=== PATIENT | female | born 1960 | race Caucasian/White ===

== ENCOUNTER → 2019-03-05 | Outpatient (CLI) | payer OTHER ==
--- NOTE | 2019-03-05 15:00 | RAD ---
Examination: Ultrasound pelvis HISTORY: History of postmenopausal bleeding COMPARISON: None available. FINDINGS: The uterus measures 8.8 x 5.3 x 4.5 cm. Endometrium measures 1.4 cm in thickness. No increased vascular identified in the endometrium. The right and left ovaries could not be identified. IMPRESSION: 1. Thickened appearing endometrium. With a history of postmenopausal bleeding, differential includes endometrial hyperplasia or malignancy. 2. Right and left ovaries could not be identified. Electronically signed by: Willie Holt MD (03/05/2019 2:57 PM) [id number]
== END | disposition home or self-care (01) ==
LOC: US 12:57
PROVIDERS: ATTEND Nurse Practitioner Family
DX: N93.8 Other specified abnormal uterine and vaginal bleeding (principal)
CPT/HCPCS: 76830; 76856

== ENCOUNTER → 2019-03-23 | Outpatient (CLI) | payer OTHER ==
[~2019-03-23] MED LIST: IOHEXOL 300 MG/ML 75 ML VIAL. IV ONE
--- NOTE | 2019-03-23 15:02 | RAD ---
CT chest with contrast HISTORY: Shortness of breath, weight loss, tobacco use PQRS Compliance Statement: One or more of the following individualized dose reduction techniques were utilized for this examination: 1. Automated exposure control 2. Adjustment of the mA and/or kV according to patient size 3. Use of iterative reconstruction technique TECHNIQUE: Computed tomographic imaging of the chest is performed following the uneventful intravenous administration of 75 cc Omnipaque 300 nonionic contrast material. COMPARISON: None FINDINGS: Thyroid unremarkable Nonpathologic sized mediastinal lymph nodes. There is respiratory motion which degrades the study. There is centrilobular emphysema seen. Numerous 3 to 5 mm solid pulmonary nodules are seen bilaterally. There is also a prominent area of pleural thickening in the right chest wall with associated subpleural changes in the lung this measures 54 mm x 22 mm there appears to be patchy groundglass opacities greatest in the mid right lung and lower lingula. There is semisolid appearing nodules scattered bilaterally. No pleural effusions. Visualized upper abdominal organs appear unremarkable. This expansile lesion of the posterior right ninth rib and of the anterior lateral sixth right rib. IMPRESSION: Patchy bilateral groundglass opacities and semisolid nodules could reflect acute infectious process. Multiple tiny pulmonary nodules are seen bilaterally that are nonspecific. However there is a large pleural-based 50 mm chest wall mass that is suspicious for malignancy in the right chest wall adjacent to the lateral right sixth rib. Expansile right ninth and sixth rib lesions are not overtly malignant but could reflect malignancy especially in light of a chest wall mass. Electronically signed by: Wade Hope MD (03/23/2019 2:59 PM) [facility] [place]
== END | disposition home or self-care (01) ==
LOC: CT 13:55
PROVIDERS: ATTEND Family Medicine
DX: J43.2 Centrilobular emphysema (principal); R91.8 Other nonspecific abnormal finding of lung field; Z79.891 Long term (current) use of opiate analgesic; Z72.0 Tobacco use
CPT/HCPCS: 71260; Q9967

== ENCOUNTER → 2019-04-04 | Outpatient (CLI) | payer OTHER ==
--- NOTE | 2019-04-04 16:25 | RAD ---
Examination: Lower Extremity Venous Doppler Ultrasound History: Venous stasis Bilateral lower extremity edema, redness Comparison: None Procedure: Daniel scale, color flow 2D and spectal waveform analysis images are obtained with and without compression in the area of the common femoral vein, superficial femoral vein - femoral vein junction, main femoral vein (superficial femoral vein) and popliteal vein. Veins of the proximal calf are also imaged. Findings: There is normal duplex flow, color flow and compressibility of all visualized vein segments. No evidence of deep venous thrombus is present. Impression: No evidence of DVT in the bilateral lower extremity venous system. Electronically signed by: Willie Holt MD (04/04/2019 4:23 PM) [place] [id number]
== END | disposition home or self-care (01) ==
LOC: US 12:38
PROVIDERS: ATTEND Nurse Practitioner Family
DX: I87.2 Venous insufficiency (chronic) (peripheral) (principal); R60.0 Localized edema
CPT/HCPCS: 93970

== ENCOUNTER 2019-10-26 20:11 | Inpatient (IN) | payer OTHER ==
[~2019-10-26] VITALS: Ht 170.2 cm; Wt 131.0 kg
[2019-10-26 20:46] VITALS: BP 162/70
--- NOTE | 2019-10-26 21:00 | NUR ---
The patient, MATT WILKINS, 59 y/o, F admitted by ANGEL GORDON MD, to room 113, was given written information regarding hospital policies, unit procedures and contact persons. Valuables were checked and left with the patient. Physical and social needs assessed. Medications reviewed. orders reviewed and implemented. IV and fluids started. Will continue to monitor.
[2019-10-26] MEDS ORDERED: ANTI-COAG MONITOR BY PHARMACY. MC PRN (21:45)
[2019-10-26] MEDS: IV NORMAL SALINE 1,000ML 1,000 ML IV SCH (21:45)
[2019-10-26] MEDS ORDERED: VANCOMYCIN 2 GM in IV NORMAL SALINE 500ML 500 ML IV ONE (22:00)
[2019-10-26 22:23] LABS: BASO # 0.1 x10^3/uL (0.0-0.2); BASO % 1 % (0-3); EOS # 0.1 x10^3/uL (0.0-0.7); EOS % 1 % (0-3); HEMATOCRIT 39.6 % (36.0-47.0); HEMOGLOBIN 13.3 g/dL (12.0-15.5); LYMPH # 1.1 x10^3/uL (1.0-4.8); LYMPH % 11 % (24-48); MEAN CORPUSCULAR HEMOGLOBIN 32 pg (25-35); MEAN CORPUSCULAR HGB CONC 34 g/dL (31-37); MEAN CORPUSCULAR VOLUME 94 fL (79-100); MONO # 0.7 x10^3/uL (0.0-1.1); MONO % 7 % (0-9); NEUT % 81 % (31-73); PLATELET COUNT 173 x10^3/uL (140-400); RED BLOOD COUNT 4.22 x10^6/uL (3.50-5.40); RED CELL DISTRIBUTION WIDTH 14.8 % (11.5-14.5); WHITE BLOOD COUNT 9.9 x10^3/uL (4.0-11.0)
[2019-10-26 22:34] LABS: CALCIUM 8.5 mg/dL (8.5-10.1); CREATININE 0.7 mg/dL (0.6-1.0); GFR 85.6; POTASSIUM 3.7 mmol/L (3.5-5.1)
[2019-10-26 22:37] LABS: ALBUMIN 3.2 g/dL (3.4-5.0); ALBUMIN/GLOBULIN RATIO 0.7 (1.0-1.7); TOTAL BILIRUBIN 0.2 mg/dL (0.2-1.0); TOTAL PROTEIN 7.5 g/dL (6.4-8.2)
[2019-10-26] MEDS ORDERED: ALBU2.5V8 IH (23:16)
[2019-10-26] MEDS ORDERED: IPRA3AMP29 NEB (23:16)
[2019-10-26] MEDS ORDERED: CYCL-331 PO (23:16)
[2019-10-26] MEDS ORDERED: BUPR300T3 PO (23:16)
[2019-10-26] MEDS ORDERED: LEVO25TA4 PO (23:16)
[2019-10-26] MEDS ORDERED: TRAZ-120 PO (23:16)
[2019-10-26] MEDS ORDERED: BUDE10.2 IH (23:16)
[2019-10-26] MEDS ORDERED: ALBU2.5V5 NEB (23:16)
[2019-10-26] MEDS ORDERED: SERT100T PO (23:16)
[2019-10-26 23:22] VITALS: BP 156/82
[2019-10-26] MEDS: ENOXAPARIN 40 MG/0.4 ML SYRINGE. SQ SCH (23:25)
[2019-10-27 00:44] LABS: BACTERIA,URINE FEW /HPF (0-FEW); BILIRUBIN,URINE NEG (NEG); CLARITY,URINE CLEAR; COLOR,URINE STRAW; GLUCOSE,URINE NEG (NEG); NITRITE,URINE NEG (NEG); RBC,URINE OCC /HPF (0-2); SQUAMOUS EPITHELIAL CELL,UR OCC /LPF; UROBILINOGEN,URINE 0.2 mg/dL (0.2 mg/dL); WBC,URINE OCC /HPF (0-4)
[2019-10-27 05:11] VITALS: BP 132/69
--- NOTE | 2019-10-27 05:30 | EKG ---
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
[2019-10-27] MEDS: IV NORMAL SALINE 1,000ML 1,000 ML IV SCH ×3 (05:45→21:45)
[2019-10-27] MEDS ORDERED: ALBUTEROL SULFATE 2.5 MG/3 ML NEBU. IH PRN (06:30)
[2019-10-27] MEDS: VANCOMYCIN PER PHARMACY MC PRN (07:39)
[2019-10-27] MEDS: IPRATRPIUM/ALBUTEROL 0.5/2.5MG 3 ML NEBU. NEB SCH ×4 (08:00→20:00)
--- NOTE | 2019-10-27 08:16 | RAD ---
EXAM: PA and Lateral Views of the Chest DATE: 10/26/2019 9:35 PM INDICATION: COPD exacerbation COMPARISON: 03/23/2019 FINDINGS: The heart is not enlarged. Mediastinal and hilar contours are stable. Linear patchy airspace opacities in the midlungs and lung bases bilaterally. No lobar consolidation. Mild background of emphysematous change. No pleural effusion or pneumothorax. Multilevel degenerative changes of spine are seen. IMPRESSION: Linear and patchy opacities in the midlungs and lung bases bilaterally, may represent atelectasis although early/developing consolidation is not excluded, particularly in the right midlung. No definite pleural effusion or pneumothorax. No lobar consolidation. Electronically signed by: Feliz Zaman MD (10/27/2019 8:13 AM) [facility]
[2019-10-27] MEDS: buPROPion XL 300 MG TAB.ER.24H. PO SCH (08:31)
[2019-10-27] MEDS: SERTRALINE 100 MG TABLET. PO SCH ×2 (08:31→22:25)
[2019-10-27] MEDS: LACTOBACILLUS RHAMNOSUS GG 1 CAPSULE. PO SCH ×2 (08:32→22:24)
[2019-10-27] MEDS: CYCLOBENZAPRINE 10 MG TABLET. PO SCH ×2 (08:32→22:25)
[2019-10-27] MEDS ORDERED: ALBUTEROL SULFATE 2.5 MG/3 ML NEBU. NEB SCH (09:00)
--- NOTE | 2019-10-27 09:36 | RAD ---
Examination: VENOUS LOWER EXTREMITY LEFT History: Swelling and pain Comparison/Correlation: 04/04/2019 bilateral lower extremity venous duplex ultrasound exam FINDINGS: Left lower extremity duplex venous ultrasound exam was performed. Grayscale, color Doppler, and spectral Doppler imaging was performed. Compression and augmentation was performed. The left common femoral vein, superficial femoral vein, popliteal vein, and greater saphenous vein are normal with no evidence of deep venous thrombus. Normal compressibility and augmentation is evident. Left peroneal veins are unremarkable. Posterior tibial veins could not be delineated due to left lower extremity swelling and edema. IMPRESSION: Left lower extremity swelling and subcutaneous edema. No evidence of deep venous thrombus involving the left lower extremity. Electronically signed by: Brent Wyman MD (10/27/2019 9:33 AM) [id number]
[2019-10-27] MEDS: BUDESONIDE 0.5 MG/2 ML NEBU NEB SCH ×2 (10:10→20:41)
[2019-10-27] MEDS: ENOXAPARIN 40 MG/0.4 ML SYRINGE. SQ SCH ×2 (10:17→22:26)
[2019-10-27] MEDS: VANCOMYCIN 2 GM in IV NORMAL SALINE 500ML 500 ML IV SCH ×2 (10:21→22:25)
[2019-10-27 11:18] VITALS: BP 152/81
[2019-10-27 11:27] LABS: THYROID STIM HORMONE (TSH) 1.206 uIU/mL (0.358-3.740)
--- NOTE | 2019-10-27 15:00 | NUR ---
Pharmacy Vancomycin Dosing Note S:Consulted to monitor and dose vancomycin started 10/26/19. O:MATT WILKINS is a 59 year old F with Cellulitis, . Height: 5 feet, 7 inches Weight: 130.0 kg [place] Body Weight: 61.60 Adjusted Body Weight: 88.96 Dosing Weight: Actual Other Antibiotics: LABS: Last BUN: 9 Last Creatinine: 0.7 Creatinine Clearance: 121.53 Last WBC: 9.9 Vancomycin Dosing: Loading Dose: 2000 mg x1 Dosing Weight: Actual Target Trough: 10-20 A: Based on: Actual weight, renal function, and indication P: 1. Begin Vancomycin 2000 mg IV q12h 2. Follow up Trough level on 10/28/19 at 0930 3. Pharmacy will continue to monitor, follow and adjust therapy as needed. CLIFFORD BLAIR, 10/27/19 1500
[2019-10-27 16:05] VITALS: BP 131/72
[2019-10-27] MEDS: ACETAMINOPHEN 325 MG TABLET PO PRN ×2 (17:00→22:14)
[2019-10-27 19:49] VITALS: BP 179/92
[2019-10-27] MEDS ORDERED: traZODone 50 MG TABLET. PO SCH (21:00)
[2019-10-27] MEDS ORDERED: ZOLPIDEM 5 MG TABLET. PO SCH (21:00)
[2019-10-27 22:05] VITALS: BP 161/82
--- NOTE | 2019-10-27 23:33 | PN ---
DATE: SUBJECTIVE: The patient came in with left leg cellulitis. The patient is receiving IV vancomycin. She is doing somewhat better overall. Blood pressure 152/80, respiratory rate 20, pulse 90, presently afebrile. She had been running a temperature with a pulse over 100. The patient's labs look basically stable, lactic acid was baseline. Her venous Dopplers were negative. We will continue with the IV vancomycin and hopefully get that set up for outpatient. OBJECTIVE: LUNGS: Otherwise lungs are clear. CARDIOVASCULAR: Stable. EXTREMITIES: Left lower leg less swollen than previously noted. IMPRESSION: Cellulitis, left lower leg, morbid obesity. ANGEL GORDON MD DR: PRISCILLA/darrell JOB#: [id number] / [id number]
--- NOTE | 2019-10-28 02:49 | NUR ---
Pt feels like her left leg feels better. Right leg has increased in redness; pt denies pain. Pt counselled on drinking water and smoking cessation. Will continue to monitor.
[2019-10-28 05:11] VITALS: BP 143/79
[2019-10-28] MEDS: IV NORMAL SALINE 1,000ML 1,000 ML IV SCH (05:20)
[2019-10-28] MEDS: IPRATRPIUM/ALBUTEROL 0.5/2.5MG 3 ML NEBU. NEB SCH ×4 (05:28→21:06)
[2019-10-28] MEDS: LEVOTHYROXINE 25 MCG TABLET. PO SCH (06:00)
[2019-10-28] MEDS: LACTOBACILLUS RHAMNOSUS GG 1 CAPSULE. PO SCH ×2 (08:32→20:52)
[2019-10-28] MEDS: CYCLOBENZAPRINE 10 MG TABLET. PO SCH ×2 (08:32→20:52)
[2019-10-28] MEDS: SERTRALINE 100 MG TABLET. PO SCH ×2 (08:32→20:53)
[2019-10-28] MEDS: buPROPion XL 300 MG TAB.ER.24H. PO SCH (08:33)
[2019-10-28 09:42] LABS: BASO % 1 % (0-3); EOS # 0.1 x10^3/uL (0.0-0.7); EOS % 1 % (0-3); HEMATOCRIT 36.6 % (36.0-47.0); HEMOGLOBIN 11.9 g/dL (12.0-15.5); LYMPH # 0.8 x10^3/uL (1.0-4.8); LYMPH % 10 % (24-48); MEAN CORPUSCULAR HEMOGLOBIN 31 pg (25-35); MEAN CORPUSCULAR HGB CONC 33 g/dL (31-37); MEAN CORPUSCULAR VOLUME 94 fL (79-100); MONO # 0.5 x10^3/uL (0.0-1.1); MONO % 7 % (0-9); NEUT # 6.3 x10^3uL (1.8-7.7); NEUT % 82 % (31-73); PLATELET COUNT 161 x10^3/uL (140-400); RED BLOOD COUNT 3.88 x10^6/uL (3.50-5.40); WHITE BLOOD COUNT 7.7 x10^3/uL (4.0-11.0)
[2019-10-28] MEDS: BUDESONIDE 0.5 MG/2 ML NEBU NEB SCH ×2 (09:43→21:06)
[2019-10-28 09:46] LABS: VANC TR 14.2 mcg/mL (10.0-20.0)
[2019-10-28 09:55] LABS: ALBUMIN 2.9 g/dL (3.4-5.0); ALBUMIN/GLOBULIN RATIO 0.7 (1.0-1.7); CREATININE 0.6 mg/dL (0.6-1.0); GFR 102.3; TOTAL BILIRUBIN 0.4 mg/dL (0.2-1.0)
[2019-10-28] MEDS: ENOXAPARIN 40 MG/0.4 ML SYRINGE. SQ SCH ×2 (10:14→22:14)
[2019-10-28] MEDS: VANCOMYCIN 2 GM in IV NORMAL SALINE 500ML 500 ML IV SCH ×2 (10:15→22:10)
[2019-10-28 10:42] VITALS: BP 129/52
[2019-10-28] MEDS: VANCOMYCIN PER PHARMACY MC PRN (10:47)
--- NOTE | 2019-10-28 10:48 | NUR ---
Pharmacy Vancomycin Dosing Note S:Consulted to monitor and dose vancomycin started 10/26/19. O:MATT WILKINS is a 59 year old F with Cellulitis, . Height: 5 feet, 7 inches Weight: 131.1 kg [place] Body Weight: 61.60 Adjusted Body Weight: 89.40 Dosing Weight: Actual Other Antibiotics: LABS: Last BUN: 6 Last Creatinine: 0.6 Creatinine Clearance: 121.53 Last WBC: 9.9 Drug Levels: Last Trough level: 14.2 on 10/28/19 at 0930 Last dose given at 10/27 2200 Vancomycin Dosing: Loading Dose: 2000 mg x1 Dosing Weight: Actual Target Trough: 10-20 A: Based on: Trough P: 1. Continue Vancomycin 2000 mg IV q12h 2. Follow up Trough level on 10/29/19 at 2130 3. Pharmacy will continue to monitor, follow and adjust therapy as needed. CLIFFORD BLAIR, 10/28/19 1044
[2019-10-28] MEDS ORDERED: ZOLPIDEM 5 MG TABLET. PO PRN (11:00)
[2019-10-28] MEDS: NICOTINE 21MG PATCH. TD SCH (12:31)
[2019-10-28] MEDS ORDERED: IOHEXOL 350 MG/ML 100 ML VIAL. IV ONE (14:15)
[2019-10-28] MEDS ORDERED: CONTRAST GIVEN MC PRN (14:15)
[2019-10-28 14:42] VITALS: BP 156/76
--- NOTE | 2019-10-28 16:29 | RAD ---
Examination: CT ANGIOGRAPHY CHEST History: Shortness of breath, cough, congestion Comparison/Correlation: 03/23/2019 CT chest with contrast Findings: Axial images of the chest were obtained following IV contrast according to pulmonary arteriography protocol. Maximum intensity projection images were provided. Sagittal and coronal reformatted images were provided. Pulmonary arterial vasculature is normal with no thromboembolic disease. Minimal bibasilar calcified sulcus atelectasis is present. Minimal right costophrenic sulcus pleural effusion is present. Thoracic aorta is unremarkable. Calcification calcification at the origin of the subclavian artery noted. Linear atelectasis is noted at the left lung base. Diffuse centrilobular emphysema is present. Spiculated nodule measuring 1 cm x 0.7 cm x 1.3 cm longitudinal is present on axial image 45 and coronal image 52. This is at the right hilar level within the middle lobe. Minimal calcific involvement of the thoracic aorta is present. Old left lower rib fractures are present Impression: No pulmonary arterial thromboembolic disease although evaluation may be limited in regions of linear atelectasis at the bases. Spiculated right middle lobe mass at the right hilar level likely representing primary neoplastic process is evident in the interval. Centrilobular emphysema. PQRS Compliance Statement: One or more of the following individualized dose reduction techniques were utilized for this examination: 1. Automated exposure control 2. Adjustment of the mA and/or kV according to patient size 3. Use of iterative reconstruction technique Electronically signed by: Brent Wyman MD (10/28/2019 4:26 PM) [id number]
[2019-10-28 19:22] VITALS: BP 155/91
--- NOTE | 2019-10-28 22:46 | PN ---
DATE: SUBJECTIVE: A 59-year-old female admitted with cellulitis to her left lower leg, been having problems with cough and congestion even though her chest x-ray was basically unremarkable and her venous Doppler was unremarkable. There is a possibility of a consolidation. CT scan was performed and showed the possibility of a malignant tumor in her lung. As a result of this, the patient will be discussed her preferences, further treatment and selection of a dairy quality assurance officer for further evaluation of the situation at hand. The patient is on Lovenox for now prophylactically. OBJECTIVE: VITAL SIGNS: Include blood pressure 155/91, respiratory rate 22, pulse 103, afebrile. The patient is on 2 liters at 98%. GENERAL: Otherwise, the patient is alert and oriented. LUNGS: Diminished throughout, but clear. CARDIOVASCULAR: Regular sinus rhythm. ABDOMEN: Protuberant. EXTREMITIES: Left lower leg, improved. IMPRESSION: Cellulitis of the left lower leg, pulmonary nodule, possible malignancy of the lung and possible pneumonia as well. PLAN: Continue on IV antibiotic therapy and make further evaluation on her as indicated. ANGEL GORDON MD DR: PRISCILLA/darrell JOB#: [id number] / [id number]
[2019-10-29] MEDS: IPRATRPIUM/ALBUTEROL 0.5/2.5MG 3 ML NEBU. NEB SCH ×4 (04:48→20:01)
[2019-10-29 05:00] VITALS: BP 167/68
[2019-10-29] MEDS: LEVOTHYROXINE 25 MCG TABLET. PO SCH (05:47)
[2019-10-29] MEDS: SERTRALINE 100 MG TABLET. PO SCH ×2 (08:38→22:31)
[2019-10-29] MEDS: CYCLOBENZAPRINE 10 MG TABLET. PO SCH ×2 (08:38→22:31)
[2019-10-29] MEDS: LACTOBACILLUS RHAMNOSUS GG 1 CAPSULE. PO SCH ×2 (08:38→22:31)
[2019-10-29] MEDS: ACETAMINOPHEN 325 MG TABLET PO PRN (08:38)
[2019-10-29] MEDS: buPROPion XL 300 MG TAB.ER.24H. PO SCH (08:39)
[2019-10-29] MEDS: NICOTINE 21MG PATCH. TD SCH (08:40)
[2019-10-29] MEDS: ENOXAPARIN 40 MG/0.4 ML SYRINGE. SQ SCH ×2 (08:40→22:32)
[2019-10-29] MEDS: METOPROLOL SUCC 24HR ER 50 MG TAB.ER.24H. PO SCH (09:00)
[2019-10-29] MEDS: VANCOMYCIN 2 GM in IV NORMAL SALINE 500ML 500 ML IV SCH (10:05)
[2019-10-29] MEDS: BUDESONIDE 0.5 MG/2 ML NEBU NEB SCH ×2 (10:34→20:02)
[2019-10-29 10:45] VITALS: BP 161/79
[2019-10-29] MEDS: VANCOMYCIN PER PHARMACY MC PRN (13:02)
--- NOTE | 2019-10-29 14:30 | NUR ---
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
[2019-10-29 14:51] VITALS: BP 142/78
--- NOTE | 2019-10-29 17:18 | PN ---
DATE: SUBJECTIVE: A 59-year-old female has a history of lung cancer, pneumonia, cellulitis left lower leg, who have a PICC line placed in left lower leg, still inflamed, sometimes better, sometimes worse. She also has pneumonia, receiving both vancomycin and Levaquin, so she is feeling a little bit better, although she requires oxygen fulltime. OBJECTIVE: VITAL SIGNS: Blood pressure 167/60, we will add metoprolol to her. Respiratory rate 22, pulse 104, afebrile. GENERAL: The patient is alert and oriented. LUNGS: Diminished throughout, but clear. CARDIOVASCULAR: Regular sinus rhythm. ABDOMEN: Protuberant, morbidly obese. EXTREMITIES: No clubbing, cyanosis. Left lower leg still swollen, red and tender, although somewhat improved. Pulses noted distally. NEUROLOGIC: Speech is fluent and spontaneous. IMPRESSION: Therefore, pneumonia of unspecified etiology, history of lung cancer, receiving radiation, cellulitis to the left lower leg. PLAN: The patient will be monitored carefully. Continue with IV antibiotic therapy. PICC line placement and oxygen for home. ANGEL GORDON MD DR: PRISCILLA/darrell JOB#: [id number] / [id number]
[2019-10-29 18:47] VITALS: BP 124/64
[2019-10-29 21:52] LABS: VANC TR 13.6 mcg/mL (10.0-20.0)
[2019-10-30] MEDS: VANCOMYCIN 2 GM in IV NORMAL SALINE 500ML 500 ML IV SCH (00:18)
--- NOTE | 2019-10-30 03:54 | NUR ---
PT has been pleasant with cares, assessment and medication administration. IV infiltrated shortly after last IV infusion.
[2019-10-30] MEDS: IPRATRPIUM/ALBUTEROL 0.5/2.5MG 3 ML NEBU. NEB SCH ×3 (05:04→16:00)
[2019-10-30 06:02] VITALS: BP 146/84
[2019-10-30] MEDS: LEVOTHYROXINE 25 MCG TABLET. PO SCH (06:03)
[2019-10-30 06:20] LABS: BASO % 1 % (0-3); EOS # 0.1 x10^3/uL (0.0-0.7); EOS % 1 % (0-3); HEMATOCRIT 34.6 % (36.0-47.0); HEMOGLOBIN 11.5 g/dL (12.0-15.5); LYMPH # 0.8 x10^3/uL (1.0-4.8); LYMPH % 11 % (24-48); MEAN CORPUSCULAR HEMOGLOBIN 31 pg (25-35); MEAN CORPUSCULAR HGB CONC 33 g/dL (31-37); MEAN CORPUSCULAR VOLUME 94 fL (79-100); MONO # 0.6 x10^3/uL (0.0-1.1); MONO % 8 % (0-9); NEUT % 80 % (31-73); PLATELET COUNT 154 x10^3/uL (140-400); RED BLOOD COUNT 3.67 x10^6/uL (3.50-5.40); RED CELL DISTRIBUTION WIDTH 14.7 % (11.5-14.5); WHITE BLOOD COUNT 7.5 x10^3/uL (4.0-11.0)
[2019-10-30 06:21] LABS: CALCIUM 8.5 mg/dL (8.5-10.1); CREATININE 0.6 mg/dL (0.6-1.0); GFR 102.3; POTASSIUM 3.8 mmol/L (3.5-5.1)
[2019-10-30 08:41] VITALS: BP 146/84
[2019-10-30] MEDS: LACTOBACILLUS RHAMNOSUS GG 1 CAPSULE. PO SCH (08:41)
[2019-10-30] MEDS: NICOTINE 21MG PATCH. TD SCH (08:41)
[2019-10-30] MEDS: SERTRALINE 100 MG TABLET. PO SCH (08:41)
[2019-10-30] MEDS: CYCLOBENZAPRINE 10 MG TABLET. PO SCH (08:41)
[2019-10-30] MEDS: METOPROLOL SUCC 24HR ER 50 MG TAB.ER.24H. PO SCH (08:41)
[2019-10-30] MEDS: buPROPion XL 300 MG TAB.ER.24H. PO SCH (08:45)
[2019-10-30] MEDS ORDERED: TRIAMCINOLONE ACETONIDE 0.5% TOPICAL CREAM 15GM TUBE. TP SCH (09:00)
[2019-10-30] MEDS: BUDESONIDE 0.5 MG/2 ML NEBU NEB SCH (09:50)
[2019-10-30] MEDS: ENOXAPARIN 40 MG/0.4 ML SYRINGE. SQ SCH (10:00)
--- NOTE | 2019-10-30 10:09 | NUR ---
Kalyn PICC line placement called for ETA on picc line. PICC line placement won't be able to occur until early afternoon. Patient notified. Pharmacy notified. Vanc held at this time.
[2019-10-30] MEDS ORDERED: LEVO500T59 PO (14:43)
[2019-10-30] MEDS ORDERED: VANC1PIG IV (14:43)
--- NOTE | 2019-10-30 17:00 | NUR ---
Discharge Note: ROSANNE WILKINS [facility] Discharge instructions and discharge home medications reviewed with Patient and a copy given. All questions have been answered and understanding verbalized. The following instructions and handouts were given: PICC LINE placement Patient discharged to home accompanied by . Discharged in wheel chair. To follow up with out patient Radha hui starting tomorrow on 10/31/2019 BID.
--- NOTE | 2019-10-31 20:05 | DS ---
DATE OF DISCHARGE: 10/30/2019 HOSPITAL COURSE: A 59-year-old female who came in with severe swelling to her left lower leg. She has been attempted to be treated as an outpatient and the patient was brought in because of failure and the cellulitis to her lower leg as noted. The patient also has a history of lung cancer and she is receiving radiation therapy. Initially, she did have a low-grade temperature of 99.2 with a pulse of 106 and respiratory rate of 24. The patient otherwise received IV vancomycin and had a PICC line placed. Her blood count remained basically stable. The patient's sugars actually were in really good condition and she had a decrease in her albumin showing moderate amount of protein malnutrition. Vancomycin levels were followed by the pharmacy. The patient made good progress. She will be discharged home. Follow up as an outpatient and have her vancomycin followed by pharmacy at least for the next 10 days. IMPRESSION: Cellulitis, left lower leg; history of lung cancer; essential hypertension; sinus tachycardia; moderate protein malnutrition and morbid obesity. PLAN: As above. ANGEL GORDON MD DR: PRISCILLA/darrell JOB#: [id number] / [id number]
== END 2019-10-30 17:02 | disposition home health service (06) | DRG 602 ==
LOC: 1 SOUTH 20:16
PROVIDERS: ADMIT Family Medicine; ATTEND Family Medicine
PROC: 05HY33Z Insertion of Infusion Device into Upper Vein, Percutaneous Approach (ICD-10-PCS; principal; 2019-10-30)
DX: L03.116 Cellulitis of left lower limb (principal); J18.9 Pneumonia, unspecified organism; E44.0 Moderate protein-calorie malnutrition; C34.90 Malignant neoplasm of unspecified part of unspecified bronchus or lung; Z68.42 Body mass index [BMI] 45.0-49.9, adult; E66.01 Morbid (severe) obesity due to excess calories; I10 Essential (primary) hypertension; Z79.01 Long term (current) use of anticoagulants; Z92.3 Personal history of irradiation
CPT/HCPCS: 36415; 36569; 71046; 71275; 80048; 80053; 80061; 80202; 81001; 83605; 84443; 85025; 87040; 93005; 93971; 94640; J1650; J1956; J3370; J7040; J7613; J7620; J7626; Q9967; 97116; 97535; J7030

== ENCOUNTER → 2020-05-05 | Outpatient (CLI) | payer OTHER ==
[2019-11-05 23:20] VITALS: BP 171/93
[~2020-05-05] MED LIST changes: +ALBU2.5V5 NEB; +ALBU2.5V8 IH; +BUDE10.2 IH; +BUPR300T3 PO; +CYCL-331 PO; -IOHEXOL 300 MG/ML 75 ML VIAL. IV ONE; +IPRA3AMP29 NEB; +LEVO25TA4 PO; +LEVO500T59 PO; +SERT100T PO; +TRAZ-120 PO; +VANC1PIG IV
--- NOTE | 2020-05-05 11:55 | RAD ---
INDICATION: Reason: PMB / Spl. Instructions: / History: COMPARISON: February 2019 TECHNIQUE: Grayscale and color ultrasound images uterus and adnexa. Transabdominal and transvaginal images obtained. Transvaginal images were needed to better visualize structures that were limited on transabdominal imaging. FINDINGS: Uterus: 83 x 46 x 34 mm. Endometrial Stripe: 8 mm. The bilateral ovaries are again obscured. IMPRESSION: * The endometrial stripe is thickened for a postmenopausal patient but slightly decreased when compared to prior exam. Again possible causes include endometrial hyperplasia or neoplasm. Electronically signed by: Shabbir Wallace MD (05/05/2020 11:52 AM) [id number]
== END | disposition home or self-care (01) ==
LOC: US 10:48
PROVIDERS: ATTEND Family Medicine
DX: N95.0 Postmenopausal bleeding (principal)
CPT/HCPCS: 76830; 76856

== ENCOUNTER 2020-06-27 18:57 | Inpatient (IN) | payer OTHER ==
[~2020-06-27] VITALS: Ht 170.2 cm; Wt 127.0 kg
[~2020-06-27 18:57] MED LIST changes: -CEFD300C PO; -DEXA6TAB6 PO; -Demeclocycline Hcl PO; -IV NORMAL SALINE 500ML 500 ML IV ONE; -LEVO500T8 PO; -VANCOMYCIN 2 GM in IV NORMAL SALINE 500ML 500 ML IV ONE
--- NOTE | 2020-06-27 18:57 | NUR ---
The patient, MATT WILKINS, 59 y/o, F admitted by ANGEL GORDON MD, was given written information regarding hospital policies, unit procedures and contact persons. Pt receiving IV vanco per PICC line in [facility], noted hyponatremia and increased SOA. On 8L oxygen via simple mask. Admission history completed. Valuables were checked and kept by patient/.
[2020-06-27] MEDS ORDERED: IPRATRPIUM/ALBUTEROL 0.5/2.5MG 3 ML NEBU. ONE (20:31)
[2020-06-27] MEDS ORDERED: SODIUM CHLORIDE 3% IV ONE (20:45)
[2020-06-27] MEDS ORDERED: VANCOMYCIN PER PHARMACY MC PRN (20:45)
[2020-06-27] MEDS ORDERED: ALBUTEROL SULFATE 2.5 MG/3 ML NEBU. IH PRN (20:45)
[2020-06-27] MEDS: IPRATRPIUM/ALBUTEROL 0.5/2.5MG 3 ML NEBU. NEB SCH (20:50)
[2020-06-27 20:58] LABS: BGAS PH 7.24 (7.35-7.45)
[2020-06-27] MEDS ORDERED: amLODIPine BESYLATE 5 MG TABLET PO ONE (21:00)
[2020-06-27] MEDS ORDERED: ENOXAPARIN 40 MG/0.4 ML SYRINGE. SQ SCH (21:00)
[2020-06-27] MEDS ORDERED: NON FORMULARY ITEM (Budesonide/Formoterol Fumarate (Symbicort 160-4.5 Mcg Inhaler) 2 PUFF) IH SCH (21:00)
[2020-06-27] MEDS ORDERED: IPRATRPIUM/ALBUTEROL 0.5/2.5MG 3 ML NEBU. NEB SCH (21:00)
[2020-06-27] MEDS ORDERED: HYDROcodone/APAP 10/325 1 TAB TABLET PO PRN (21:00)
--- NOTE | 2020-06-27 21:10 | NUR ---
Notified at this time about critical CO2 from her abg. MD requested pt be placed on BiPap and moved to ICU. This nurse notified nursing supervisor pre wave of the unit change. Will continue to monitor.
[2020-06-27 21:14] VITALS: BP 168/83
[2020-06-27 21:18] LABS: BASO # 0.2 x10^3/uL (0.0-0.2); BASO % 2 % (0-3); EOS % 0 % (0-3); HEMATOCRIT 36.9 % (36.0-47.0); HEMOGLOBIN 12.4 g/dL (12.0-15.5); LYMPH # 0.9 x10^3/uL (1.0-4.8); LYMPH % 7 % (24-48); MEAN CORPUSCULAR HEMOGLOBIN 29 pg (25-35); MEAN CORPUSCULAR HGB CONC 34 g/dL (31-37); MEAN CORPUSCULAR VOLUME 88 fL (79-100); MONO # 0.9 x10^3/uL (0.0-1.1); MONO % 7 % (0-9); NEUT # 10.3 x10^3uL (1.8-7.7); NEUT % 84 % (31-73); PLATELET COUNT 285 x10^3/uL (140-400); RED BLOOD COUNT 4.21 x10^6/uL (3.50-5.40); RED CELL DISTRIBUTION WIDTH 15.3 % (11.5-14.5); WHITE BLOOD COUNT 12.2 x10^3/uL (4.0-11.0)
--- NOTE | 2020-06-27 21:22 | RAD ---
EXAM: CHEST ONE VIEW. HISTORY: Shortness of breath. COMPARISON: 10/26/2019. FINDINGS: A frontal view of the chest is obtained. Multifocal airspace infiltrates bilaterally are superimposed on interstitial opacities. Hyperinflation is consistent with chronic obstructive pulmonary disease. There is no pneumothorax or pleural effusion. The heart is mildly enlarged. A right arm PICC line has its tip in the superior vena cava. IMPRESSION: 1. Multifocal interstitial and airspace opacities are consistent with multifocal pneumonia, possibly superimposed on mild pulmonary edema. Electronically signed by: Helen Arana MD (06/27/2020 9:19 PM) [facility]
[2020-06-27 21:31] LABS: ALBUMIN 3.1 g/dL (3.4-5.0); ALBUMIN/GLOBULIN RATIO 0.7 (1.0-1.7); CALCIUM 8.6 mg/dL (8.5-10.1); CREATININE 0.5 mg/dL (0.6-1.0); GFR 126.3; POTASSIUM 4.4 mmol/L (3.5-5.1); TOTAL BILIRUBIN 0.4 mg/dL (0.2-1.0); TOTAL PROTEIN 7.5 g/dL (6.4-8.2)
--- NOTE | 2020-06-27 21:50 | NUR ---
Pt moved to ICU bed 5 at this time. RT is with pt to help move her and replace the BiPap. BiPap was placed on pt at 2114. RT has been at bedside with patient.
[2020-06-27] MEDS ORDERED: FUROSEMIDE 20 MG/2 ML VIAL IVP ONE (22:15)
[2020-06-27 22:22] VITALS: BP 119/81
[2020-06-27] MEDS: DEXAMETHASONE SOD PHOS 4 MG/ML VIAL. IVP SCH (22:27)
[2020-06-27] MEDS: SERTRALINE 100 MG TABLET. PO SCH (22:27)
[2020-06-27] MEDS: traZODone 50 MG TABLET. PO SCH (22:29)
[2020-06-27 23:25] VITALS: BP 125/75
[2020-06-28] VITALS (22 sets, daily range): BP systolic 118–146; BP diastolic 65–100
[2020-06-28] MEDS: DEXAMETHASONE SOD PHOS 4 MG/ML VIAL. IVP SCH ×4 (06:15→17:08)
[2020-06-28] MEDS: VANCOMYCIN 1.75 GM in IV NORMAL SALINE 500ML 500 ML IV SCH ×2 (06:16→16:22)
[2020-06-28] MEDS: LEVOTHYROXINE 25 MCG TABLET. PO SCH (06:18)
[2020-06-28 07:11] LABS: BGAS PH 7.37 (7.35-7.45)
[2020-06-28 07:26] LABS: BASO % 0 % (0-3); EOS % 0 % (0-3); HEMATOCRIT 35.3 % (36.0-47.0); HEMOGLOBIN 11.8 g/dL (12.0-15.5); LYMPH # 0.5 x10^3/uL (1.0-4.8); LYMPH % 6 % (24-48); MEAN CORPUSCULAR HEMOGLOBIN 30 pg (25-35); MEAN CORPUSCULAR HGB CONC 34 g/dL (31-37); MEAN CORPUSCULAR VOLUME 88 fL (79-100); MONO # 0.3 x10^3/uL (0.0-1.1); MONO % 4 % (0-9); NEUT # 7.5 x10^3uL (1.8-7.7); NEUT % 90 % (31-73); PLATELET COUNT 244 x10^3/uL (140-400); RED BLOOD COUNT 4.02 x10^6/uL (3.50-5.40); RED CELL DISTRIBUTION WIDTH 15.1 % (11.5-14.5); WHITE BLOOD COUNT 8.3 x10^3/uL (4.0-11.0)
[2020-06-28 07:29] LABS: CALCIUM 8.6 mg/dL (8.5-10.1); CREATININE 0.6 mg/dL (0.6-1.0); GFR 102.3; POTASSIUM 4.2 mmol/L (3.5-5.1)
[2020-06-28] MEDS ORDERED: IPRATRPIUM/ALBUTEROL 0.5/2.5MG 3 ML NEBU. NEB SCH (08:00)
[2020-06-28] MEDS ORDERED: FUROSEMIDE 20 MG/2 ML VIAL IVP ONE ×2 (08:30→09:00)
--- NOTE | 2020-06-28 08:59 | PN ---
DATE: SUBJECTIVE: A 59-year-old female with history of lung cancer, came in for a PICC line placement for cellulitis to her left lower leg. She had failed outpatient therapy there. The patient began to have some weakness. Labs were checked and found her sodium to be 113. She was admitted for this as well as extreme respiratory failure. She was having difficulty breathing and put her on a facemask. She got 80%, came up to 90% and later we had placed her on BiPAP, but she is on BiPAP in the ICU with a sodium of 113. She was given a small amount of hypertonic saline, monitored this along with some mild Lasix diuresis with fluid overload. Her chest x-ray shows multiple infiltrate or processes consistent with multilobar pneumonia as well. The patient has made relatively good progress on the BiPAP. OBJECTIVE: Her initial blood pressure 160/80 with a respiratory rate of 30 and a pulse greater than 100, it came down to about 140/90. Respiratory rate 16, pulse 83. She is afebrile. She is on BiPAP, oxygenating around 96%. She has become a little bit agitated. We will give her some IV Ativan. VITAL SIGNS: The patient's chest x-ray also shows evidence of possible heart failure and her BNP was elevated over 4000. An echocardiogram and Cardiology consult there. GENERAL: Otherwise, the patient is somewhat sedated because of the use of the Ativan to help her with her agitation. Otherwise, her skin is cool, but dry. LUNGS: Diminished throughout. Poor movement of the air. CARDIOVASCULAR: Regular sinus rhythm. ABDOMEN: Protuberant. Very decreased bowel sounds. EXTREMITIES: No clubbing or cyanosis. Trace edema, but primarily the infection in the left lower leg covered with the Coban, probably have to be watched by wound care and continued to receive IV antibiotics for that. She does have a PICC line placed to continue with the IV antibiotic therapy. LABORATORY DATA: Her white count has come down from 12 to 8, hemoglobin 12 to 11. Chemistries have come up from 113 and the sodium up to 120. BUN and creatinine 4 and 0.6. As noted, BNP greater than 4000. D-dimer was elevated, but she does have that lung mass in her right upper lobe, which was evident on this repeat chest x-ray. IMPRESSION: Acute on chronic respiratory failure, syndrome of inappropriate antidiuretic hormone secretion with sodium of 113, cellulitis of the left lower lobe, multilobar pneumonia, sepsis, exacerbation of chronic obstructive pulmonary disease with acute respiratory diseases. Respiratory acidosis been adjusted there. PLAN: We will continue to monitor fluid, sodium with IV Lasix, fluid restriction, aggressive pulmonary toilet. She is on Decadron. She is receiving vancomycin and Levaquin for the pneumonia as well as the cellulitis to that left lower leg. Continues in the ICU for close monitoring. ANGEL GORDON MD DR: PRISCILLA/darrell JOB#: [id number] / [id number]
[2020-06-28] MEDS: ENOXAPARIN 40 MG/0.4 ML SYRINGE. SQ SCH ×2 (09:38→20:13)
[2020-06-28] MEDS: SERTRALINE 100 MG TABLET. PO SCH ×2 (09:40→20:13)
[2020-06-28] MEDS: buPROPion XL 300 MG TAB.ER.24H. PO SCH (09:45)
[2020-06-28] MEDS: IPRATRPIUM/ALBUTEROL 0.5/2.5MG 3 ML NEBU. NEB SCH ×3 (12:05→19:51)
--- NOTE | 2020-06-28 12:24 | NUR ---
0730 Pt on Bipap,sat 96%, tolerating well. 0830 Dr Lim at bedside, ok'd letting pt have a break from bipap and eat. Vital signs stable. 0945 Allowed pt to break from bipap, pt assisted to bathroom, very unsteady on her feet. Wants a cigarette and her to visit, educated pt on covid, smoking and visitor policy. Pt was very unhappy. 1030 Dr Rodney at bedside. Addendum: 06/28/20 at 1924 by MELODIE MEDINA RN 1100 Pt given break from Bipap, placed on 3.5LNC 1200 Pt lethargic, refusing bipap, Raphael paged, orders to leave on NC or bipap if pt complies. 1215 pt okay with putting on bipap if RT will allow her to blow her nose, pt sats 84% 1700 Bipap off, pt more alert, able to get up to chair, says she hasn't slept in a bed for 10 years.
--- NOTE | 2020-06-28 13:10 | PDOC2 ---
CONSULT DOS: DATE: 06/28/20 TIME: 13:10 Reason for Consult: Congestive heart failure Referring Physician: Dr. Lim Chief Complaint Shortness of breath and weakness Source: Chart review, Patient History of Present Illness 59-year-old female with history of COPD was recently diagnosed with cellulitis left leg. Since she failed outpatient antibiotic therapy, she presented for PICC line placement for intravenous antibiotics. Labs done prior to the procedure showed severe hyponatremia and hence patient was admitted for further management. She has baseline dyspnea secondary to COPD but stated that this has been worse since the last few weeks. She also complained of generalized weakness but denied any chest pain, palpitations or syncope. Past Medical History COPD Hypothyroidism Nonhealing wound left leg Family History Hypertension Social History Patient continues to smoke 1 pack of cigarettes daily and denied any drug abuse Current Medications Current Medications Albuterol/ Ipratropium (Duoneb) 3 ml STK-MED ONCE .ROUTE ; Start 06/27/20 at 20:31; Stop 06/27/20 at 20:31; Status DC Albuterol/ Ipratropium (Duoneb) 3 ml RTQID NEB Last administered on 06/28/20at 12:05; Start 06/28/20 at 08:00 Albuterol/ Ipratropium (Duoneb) 3 ml RTQID NEB ; Start 06/28/20 at 08:00; Stop 06/27/20 at 20:42; Status DC Sodium Chloride 300 ml @ 30 mls/hr 1X ONCE IV Last administered on 06/27/20at 21:26; Start 06/27/20 at 20:45; Stop 06/28/20 at 06:44; Status DC Albuterol Sulfate (Ventolin) 2.5 mg PRN QID PRN IH wheezing; Start 06/27/20 at 20:45 Bupropion HCl (Wellbutrin Xl) 300 mg DAILY PO Last administered on 06/28/20at 09:45; Start 06/28/20 at 09:00 Albuterol/ Ipratropium (Duoneb) 3 ml QID NEB ; Start 06/27/20 at 21:00; Stop 06/27/20 at 20:43; Status DC Levothyroxine Sodium (Synthroid) 25 mcg DAILY06 PO Last administered on 06/28/20at 06:18; Start 10/17/20 at 06:00 Sertraline HCl (Zoloft) 100 mg BID PO Last administered on 06/28/20at 09:40; Start 06/27/20 at 21:00 Trazodone HCl (Desyrel) 50 mg QHS PO ; Start 06/27/20 at 21:00 Non-Formulary Medication (Budesonide/ Formoterol Fumarate (Symbicort 160-4.5 Mcg Inhaler)) 2 puff BID IH ; Start 06/27/20 at 21:00; Stop 06/27/20 at 21:07; Status DC Enoxaparin Sodium (Lovenox 40mg Syringe) 40 mg Q24H SQ Last administered on at 22:27; Start 06/27/20 at 21:00; Stop 06/28/20 at 07:45; Status DC Vancomycin HCl (Vanco Per Pharmacy) 1 each PRN DAILY PRN MC SEE COMMENTS; Start 06/27/20 at 20:45 Amlodipine Besylate (Norvasc) 5 mg 1X ONCE PO ; Start 06/27/20 at 21:00; Stop 06/27/20 at 21:03; Status DC Vancomycin HCl 1.75 gm/Sodium Chloride 500 ml @ 250 mls/hr Q12H IV Last administered on 06/28/20at 06:16; Start 06/28/20 at 05:30 Vancomycin HCl (Vancomycin Trough Level) 1 each 1X ONCE MC ; Start 06/29/20 at 05:00; Stop 06/29/20 at 05:01 Levofloxacin/ Dextrose 150 ml @ 150 mls/hr Q24H IV Last administered on 06/27/20at 22:28; Start 06/27/20 at 21:00 Acetaminophen/ Hydrocodone Bitart (Lortab 10/325) 1 tab PRN Q6HRS PRN PO PAIN; Start 06/27/20 at 21:00 Dexamethasone Sodium Phosphate (Decadron) 4 mg Q6HRS IVP Last administered on 06/28/20at 06:15; Start 06/27/20 at 21:15 Lorazepam (Ativan Inj) 1 mg PRN Q4HRS PRN IVP ANXIETY / AGITATION Last administered on 06/28/20at 03:17; Start 06/27/20 at 21:45 Furosemide (Lasix) 20 mg 1X ONCE IVP ; Start 06/27/20 at 22:15; Stop 06/27/20 at 22:34; Status DC Furosemide (Lasix) 20 mg 1X ONCE IVP Last administered on 06/28/20at 09:37; Start 06/28/20 at 09:00; Stop 06/28/20 at 09:01; Status DC Influenza Virus Vaccine Quadrival (Fluzone Quad [id number] Syringe) 0.5 ml ONCE ONCE VAX IM ; Start 06/30/20 at 09:00; Stop 06/30/20 at 09:01 Lactobacillus Rhamnosus (Culturelle) 1 cap BID PO ; Start 06/28/20 at 21:00 Enoxaparin Sodium (Lovenox 40mg Syringe) 40 mg BID SQ Last administered on 06/28/20at 09:38; Start 06/28/20 at 09:00 Furosemide (Lasix) 20 mg 1X ONCE IVP ; Start 06/28/20 at 08:30; Stop 06/28/20 at 08:31; Status DC Active Scripts Active Reported Trazodone Hcl 50 Mg Tablet 1 Tab PO QHS Duoneb 0.5-3(2.5) Mg/3 Ml (Albuterol/Ipratropium) 3 Ml Ampul.neb 3 Ml NEB QID Levothyroxine Sodium 25 Mcg Tablet 1 Tab PO DAILY Wellbutrin Xl (Bupropion Hcl) 300 Mg Tab.er.24h 1 Tab PO DAILY Zoloft (Sertraline Hcl) 100 Mg Tablet 1 Tab PO BID Albuterol Sulfate Neb Soln (Albuterol Sulfate) 2.5 Mg/3 Ml Vial.neb 2.5 Mg NEB Q6-8HRS Proair Hfa Inhaler (Albuterol Sulfate) 8.5 Gm Hfa.aer.ad 2 Puff IH PRN Q4-6HRS PRN 21 Days Symbicort 160-4.5 Mcg Inhaler (Budesonide/Formoterol Fumarate) 10.2 Gm Hfa.aer.ad 2 Puff IH BID Allergies: Coded Allergies: No Known Drug Allergies (Unverified , 03/23/19) PSYCHOLOGICAL ROS: No: Hallucinations Eyes: No: Loss of vision HEENT: No: Epistaxis Respiratory: YES: Cough, Shortness of breath Cardiovascular: No: Chest Pain Gastrointestinal: No: Vomiting, Diarrhea Genitourinary: No: Henaturia Neurological: No: Seizures Skin: No: Rash General: Alert, mild distress HEENT: Atraumatic Lungs: Other (Bilateral expiratory rhonchi) Heart: Regular rate Abdomen: Soft Extremities: Other (1+ pitting edema left lower extremity with bandaged wound. Trace edema right lower extremity. Both lower extremities showed hyperpigmen tation suggestive of venous stasis.) Psych/Mental Status: Mood NL VITALS Vital Signs Date Time Temp Pulse Resp B/P (MAP) Pulse Ox O2 Delivery O2 Flow Rate FiO2 06/28/20 12:05 98 High Flow Nasal Cannula 4.0 06/28/20 11:00 93 22 138/83 (101) 06/28/20 09:00 97.2 Labs Laboratory Tests Test 06/27/20 20:45 06/27/20 21:00 06/28/20 06:30 06/28/20 06:45 Blood Gas pH 7.24 (7.35-7.45) 7.37 (7.35-7.45) Blood Gas PCO2 78 mmHg (35-45) 56 mmHg (35-45) Blood Gas PO2 156 mmHg (80-100) 70 mmHg (80-100) Blood Gas HCO3 34 mmol/L (22-26) 33 mmol/L (22-26) Arterial Bld O2 Saturation (Calc) 99 % (92-99) 94 % (92-99) FiO2 52 % 30 % White Blood Count 12.2 x10^3/uL (4.0-11.0) 8.3 x10^3/uL (4.0-11.0) Red Blood Count 4.21 x10^6/uL (3.50-5.40) 4.02 x10^6/uL (3.50-5.40) Hemoglobin 12.4 g/dL (12.0-15.5) 11.8 g/dL (12.0-15.5) Hematocrit 36.9 % (36.0-47.0) 35.3 % (36.0-47.0) Mean Corpuscular Volume 88 fL (79-100) 88 fL (79-100) Mean Corpuscular Hemoglobin 29 pg (25-35) 30 pg (25-35) Mean Corpuscular Hemoglobin Concent 34 g/dL (31-37) 34 g/dL (31-37) Red Cell Distribution Width 15.3 % (11.5-14.5) 15.1 % (11.5-14.5) Platelet Count 285 x10^3/uL (140-400) 244 x10^3/uL (140-400) Neutrophils (%) (Auto) 84 % (31-73) 90 % (31-73) Lymphocytes (%) (Auto) 7 % (24-48) 6 % (24-48) Monocytes (%) (Auto) 7 % (0-9) 4 % (0-9) Eosinophils (%) (Auto) 0 % (0-3) 0 % (0-3) Basophils (%) (Auto) 2 % (0-3) 0 % (0-3) Neutrophils # (Auto) 10.3 x10^3uL (1.8-7.7) 7.5 x10^3uL (1.8-7.7) Lymphocytes # (Auto) 0.9 x10^3/uL (1.0-4.8) 0.5 x10^3/uL (1.0-4.8) Monocytes # (Auto) 0.9 x10^3/uL (0.0-1.1) 0.3 x10^3/uL (0.0-1.1) Eosinophils # (Auto) 0.0 x10^3/uL (0.0-0.7) 0.0 x10^3/uL (0.0-0.7) Basophils # (Auto) 0.2 x10^3/uL (0.0-0.2) 0.0 x10^3/uL (0.0-0.2) D-Dimer (Dolly) 1.08 mg/L (0.00-0.50) Sodium Level 115 mmol/L (136-145) 120 mmol/L (136-145) Potassium Level 4.4 mmol/L (3.5-5.1) 4.2 mmol/L (3.5-5.1) Chloride Level 81 mmol/L (98-107) 84 mmol/L (98-107) Carbon Dioxide Level 31 mmol/L (21-32) 32 mmol/L (21-32) Anion Gap 3 (6-14) 4 (6-14) Blood Urea Nitrogen 6 mg/dL (7-20) 4 mg/dL (7-20) Creatinine 0.5 mg/dL (0.6-1.0) 0.6 mg/dL (0.6-1.0) Estimated GFR (Cockcroft-Gault) 126.3 102.3 BUN/Creatinine Ratio 12 (6-20) Glucose Level 132 mg/dL (70-99) 113 mg/dL (70-99) Lactic Acid Level 0.6 mmol/L (0.4-2.0) Calcium Level 8.6 mg/dL (8.5-10.1) 8.6 mg/dL (8.5-10.1) Total Bilirubin 0.4 mg/dL (0.2-1.0) Aspartate Amino Transf (AST/SGOT) 23 U/L (15-37) Alanine Aminotransferase (ALT/SGPT) 25 U/L (14-59) Alkaline Phosphatase 104 U/L (46-116) EP-Swz-U-Type Natriuretic Peptide 4446 pg/mL (0-124) Total Protein 7.5 g/dL (6.4-8.2) Albumin 3.1 g/dL (3.4-5.0) Albumin/Globulin Ratio 0.7 (1.0-1.7) Assessment/Plan 1. Acute respiratory failure secondary to combination of acute COPD exacerbation, pneumonia and acute on chronic diastolic heart failure. 2. Acute on chronic diastolic heart failure: Continue diuresis with Lasix. Check 2D echo to assess LV systolic function. Ischemic evaluation could be considered as an outpatient. 3. Acute COPD exacerbation: Treat per primary team. 4. Pneumonia and cellulitis: Continue intravenous antibiotics. 5. Hyponatremia, probably secondary to SIADH. Treat per IM. 6. Hypothyroidism: On levothyroxine 7. Nonhealing wound left lower extremity with hyperpigmentation both legs suggestive of venous insufficiency. Plan venous reflux study as an outpatient. Thank you for your consultation PRAVEENA RUSS MD Jun 28, 2020 13:10
[2020-06-28] MEDS: LACTOBACILLUS RHAMNOSUS GG 1 CAPSULE. PO SCH (20:13)
[2020-06-28] MEDS: traZODone 50 MG TABLET. PO SCH (21:00)
[2020-06-29] VITALS (9 sets, daily range): BP systolic 118–138; BP diastolic 70–85
[2020-06-29] MEDS: DEXAMETHASONE SOD PHOS 4 MG/ML VIAL. IVP SCH ×5 (00:13→23:00)
[2020-06-29 05:12] LABS: BASO % 0 % (0-3); EOS % 0 % (0-3); HEMATOCRIT 36.6 % (36.0-47.0); HEMOGLOBIN 12.1 g/dL (12.0-15.5); LYMPH # 0.5 x10^3/uL (1.0-4.8); LYMPH % 5 % (24-48); MEAN CORPUSCULAR HEMOGLOBIN 29 pg (25-35); MEAN CORPUSCULAR HGB CONC 33 g/dL (31-37); MEAN CORPUSCULAR VOLUME 88 fL (79-100); MONO # 0.6 x10^3/uL (0.0-1.1); MONO % 5 % (0-9); NEUT # 9.4 x10^3uL (1.8-7.7); NEUT % 90 % (31-73); PLATELET COUNT 256 x10^3/uL (140-400); RED BLOOD COUNT 4.17 x10^6/uL (3.50-5.40); WHITE BLOOD COUNT 10.5 x10^3/uL (4.0-11.0)
[2020-06-29] MEDS: IPRATRPIUM/ALBUTEROL 0.5/2.5MG 3 ML NEBU. NEB SCH ×4 (05:15→20:00)
[2020-06-29 05:20] LABS: CALCIUM 8.7 mg/dL (8.5-10.1); CREATININE 0.6 mg/dL (0.6-1.0); GFR 102.3; POTASSIUM 4.4 mmol/L (3.5-5.1)
[2020-06-29 05:45] LABS: % LYMPHS 3 % (24-48); % MONOS 5 % (0-10); % SEGS 92 % (35-66); ANISOCYTOSIS SLIGHT; PLT ESTIMATE ADEQUATE (ADEQUATE)
[2020-06-29 05:53] LABS: VANC TR 7.7 mcg/mL (10.0-20.0)
[2020-06-29] MEDS: LEVOTHYROXINE 25 MCG TABLET. PO SCH (06:00)
[2020-06-29] MEDS: VANCOMYCIN 1.75 GM in IV NORMAL SALINE 500ML 500 ML IV SCH (06:01)
[2020-06-29] MEDS ORDERED: FUROSEMIDE 20 MG/2 ML VIAL IVP ONE (07:00)
--- NOTE | 2020-06-29 08:35 | NUR ---
Pharmacy Vancomycin Dosing Note S:Consulted to monitor and dose vancomycin started . O:MATT WILKINS is a 59 year old F with Cellulitis, . Height: 5 feet, 7 inches Weight: 127.3 kg Nichols Body Weight: 61.60 Adjusted Body Weight: 87.76 Dosing Weight: Actual Other Antibiotics: LEVOFLOXACIN 750MG Q24HRS LABS: Last BUN: 12 Last Creatinine: 0.6 Creatinine Clearance: Last WBC: 10.5 Last Procalcitonin: Tmax (past 24 hours): Microbiology: I/O: Drug Levels: Last Trough level: 7.7 on 06/29/20 at 0500 Last dose given 06/29/20 at 0530 Vancomycin Dosing: Loading Dose: 2000 mg x1 Dosing Weight: Actual Target Trough: 10-20 A: Based on: P: 1. Change Vancomycin 2000 mg IV q12h from 1750mg q12hr 2. Follow up Trough level on 07/01/20 at 0500 3. Pharmacy will continue to monitor, follow and adjust therapy as needed. SUMIT GRECO RP, 06/29/20 [id number]
[2020-06-29] MEDS: LACTOBACILLUS RHAMNOSUS GG 1 CAPSULE. PO SCH ×2 (08:45→20:48)
[2020-06-29] MEDS: buPROPion XL 300 MG TAB.ER.24H. PO SCH (08:45)
[2020-06-29] MEDS: SERTRALINE 100 MG TABLET. PO SCH ×2 (08:45→20:48)
[2020-06-29] MEDS: ENOXAPARIN 40 MG/0.4 ML SYRINGE. SQ SCH ×2 (08:46→20:48)
[2020-06-29] MEDS: IV NORMAL SALINE 1,000ML 1,000 ML IV SCH ×2 (08:47→20:20)
[2020-06-29] MEDS: DEMECLOCYCLINE HCL 150 MG TABLET. PO SCH ×2 (09:22→20:49)
[2020-06-29 13:32] LABS: BILIRUBIN,URINE NEG (NEG); CLARITY,URINE CLEAR; COLOR,URINE YELLOW; GLUCOSE,URINE NEG (NEG); NITRITE,URINE NEG (NEG); RBC,URINE RARE /HPF (0-2); UROBILINOGEN,URINE 0.2 mg/dL (0.2 mg/dL); WBC,URINE OCC /HPF (0-4)
[2020-06-29 13:33] LABS: BACTERIA,URINE 0 /HPF (0-FEW); SQUAMOUS EPITHELIAL CELL,UR FEW /LPF
[2020-06-29] MEDS: VANCOMYCIN 2 GM in IV NORMAL SALINE 500ML 500 ML IV SCH (16:58)
--- NOTE | 2020-06-29 17:54 | PN ---
DATE: SUBJECTIVE: A 59-year-old female with lung cancer, also had cellulitis to her left lower leg. Sodium has been down as low as 113 and has come back up to approximately 122. She is feeling much better and the patient continues to make fairly good progress. She did have a multilobar pneumonia and sepsis and continues to receive IV antibiotic therapy as well as respiratory acidosis. The patient is progressing on all those drugs. OBJECTIVE: VITAL SIGNS: Blood pressure 138/70, respiratory rate 22, pulse 63, afebrile. GENERAL: The patient is alert and oriented. LUNGS: Diminished. Markedly improved though from where they were. CARDIOVASCULAR: Regular sinus rhythm, S1, S2, without murmur, rub, thrill, or extra heart sounds. ABDOMEN: Soft, nontender. No rebound or guarding. Positive bowel sounds. No hepatosplenomegaly was noted. EXTREMITIES: No clubbing, cyanosis. Trace edema noted. NEUROLOGIC: Intact. As noted the patient's sodium is up to 122, BUN and creatinine 12 and 0.6. UA unremarkable and CBC unremarkable. IMPRESSION: [id number] respiratory failure syndrome, respiratory acidosis, multilobar pneumonia, cellulitis of the left lower leg, sepsis, exacerbation of chronic obstructive pulmonary disease with acute respiratory disease, syndrome of inappropriate antidiuretic hormone with hyponatremia, morbid obesity. PLAN: The patient to continue on present drug regimen and we will make further evaluation on her as indicated. ANGEL GORDON MD DR: PRISCILLA/darrell JOB#: [id number] / [id number]
[2020-06-29] MEDS: traZODone 50 MG TABLET. PO SCH (20:48)
[2020-06-30] MEDS: IPRATRPIUM/ALBUTEROL 0.5/2.5MG 3 ML NEBU. NEB SCH ×2 (05:05→09:24)
[2020-06-30 05:27] VITALS: BP 135/85
[2020-06-30] MEDS: LEVOTHYROXINE 25 MCG TABLET. PO SCH (05:36)
[2020-06-30] MEDS: DEXAMETHASONE SOD PHOS 4 MG/ML VIAL. IVP SCH (05:36)
[2020-06-30] MEDS: VANCOMYCIN 2 GM in IV NORMAL SALINE 500ML 500 ML IV SCH (05:36)
--- NOTE | 2020-06-30 06:07 | NUR ---
pt was in bed upon assessment and med pass. pt has been pleasant and cooperative with cares this evening. pt is alert and oriented and able to express any concerns she has. pt is currently resting in bed will continue to monitor.
[2020-06-30 07:10] LABS: CALCIUM 8.8 mg/dL (8.5-10.1); CREATININE 0.6 mg/dL (0.6-1.0); GFR 102.3; POTASSIUM 4.1 mmol/L (3.5-5.1)
--- NOTE | 2020-06-30 08:01 | PDOC ---
CARDIO Progress Notes Date & Time Date of Service DATE: 06/30/20 TIME: 07:55 Time of Evaluation 07:55 Subjective Notes Breathing improve. No chest pain, palpitation. Vitals Vitals Vital Signs Date Time Temp Pulse Resp B/P (MAP) Pulse Ox O2 Delivery O2 Flow Rate FiO2 06/30/20 05:27 97.4 88 20 135/85 (102) 100 Nasal Cannula 3.5 Weight Weight [ ] Input and Output I.O. Intake and Output 06/30/20 07:00 Intake Total 2450 ml Output Total 1411 ml Balance 1039 ml Intake Oral 1800 ml IV Total 650 ml Output Urine Total 1410 ml Stool Total 1 ml # Voids 1 Laboratory Labs Laboratory Tests Test 06/29/20 05:00 06/29/20 12:30 06/30/20 05:50 White Blood Count 10.5 x10^3/uL (4.0-11.0) Red Blood Count 4.17 x10^6/uL (3.50-5.40) Hemoglobin 12.1 g/dL (12.0-15.5) Hematocrit 36.6 % (36.0-47.0) Mean Corpuscular Volume 88 fL (79-100) Mean Corpuscular Hemoglobin 29 pg (25-35) Mean Corpuscular Hemoglobin Concent 33 g/dL (31-37) Red Cell Distribution Width 15.0 % (11.5-14.5) Platelet Count 256 x10^3/uL (140-400) Neutrophils (%) (Auto) 90 % (31-73) Lymphocytes (%) (Auto) 5 % (24-48) Monocytes (%) (Auto) 5 % (0-9) Eosinophils (%) (Auto) 0 % (0-3) Basophils (%) (Auto) 0 % (0-3) Neutrophils # (Auto) 9.4 x10^3uL (1.8-7.7) Lymphocytes # (Auto) 0.5 x10^3/uL (1.0-4.8) Monocytes # (Auto) 0.6 x10^3/uL (0.0-1.1) Eosinophils # (Auto) 0.0 x10^3/uL (0.0-0.7) Basophils # (Auto) 0.0 x10^3/uL (0.0-0.2) Segmented Neutrophils % 92 % (35-66) Lymphocytes % 3 % (24-48) Monocytes % 5 % (0-10) Platelet Estimate Adequate (ADEQUATE) Anisocytosis Slight Sodium Level 122 mmol/L (136-145) 127 mmol/L (136-145) Potassium Level 4.4 mmol/L (3.5-5.1) 4.1 mmol/L (3.5-5.1) Chloride Level 85 mmol/L (98-107) 90 mmol/L (98-107) Carbon Dioxide Level 35 mmol/L (21-32) 32 mmol/L (21-32) Anion Gap 2 (6-14) 5 (6-14) Blood Urea Nitrogen 12 mg/dL (7-20) 13 mg/dL (7-20) Creatinine 0.6 mg/dL (0.6-1.0) 0.6 mg/dL (0.6-1.0) Estimated GFR (Cockcroft-Gault) 102.3 102.3 Glucose Level 126 mg/dL (70-99) 111 mg/dL (70-99) Calcium Level 8.7 mg/dL (8.5-10.1) 8.8 mg/dL (8.5-10.1) Vancomycin Level Trough 7.7 mcg/mL (10.0-20.0) Vancomycin Last Dose Date Vancomycin Last Dose Time 1610 Urine Collection Type Unknown Urine Color Yellow Urine Clarity Clear Urine pH 6.0 Urine Specific [place] 1.010 Urine Protein Neg (NEG-TRACE) Urine Glucose (UA) Neg mg/dL (NEG) Urine Ketones (Stick) Neg mg/dL (NEG) Urine Blood Neg (NEG) Urine Nitrite Neg (NEG) Urine Bilirubin Neg (NEG) Urine Urobilinogen Dipstick 0.2 mg/dL (0.2 mg/dL) Urine Leukocyte Esterase Neg (NEG) Urine RBC Rare /HPF (0-2) Urine WBC Occ /HPF (0-4) Urine Squamous Epithelial Cells Few /LPF Urine Bacteria 0 /HPF (0-FEW) Physical Exams HEENT: Neck Supple W Full Motion Chest: Symmetric Lungs: Other (diminished ) Heart: RRR Abdomen: Soft N/T, Other (obese ) Extremities: Other (trace bilateral LE edema/ Chronic venous stasis changes to bilateral LE ) Neurology: alert, oriented, follow commands Assessment Assessment 1. Acute respiratory failure secondary to combination of AE COPD, PNA, and mild a/c CHF 2. Acute on chronic diastolic heart failure: s/p IV diuresis with Lasix 3. Hyponatremia, probably secondary to SIADH. improving 5. LE cellulitis 6. Nonhealing LLE wound with hyperpigmentation both legs suggestive of venous insufficiency 7. Hypothyroidism: On levothyroxine 8. Obesity 9. Tobaccoism; discussed/encouraged cessation Recommendations Echo to assess LV systolic function Consider outpatient ischemic evaluation Outpatient venous reflux study Ongoing antibiotic therapy for PNA, cellulitis as per VALENTINO RIVERO APRN Jun 30, 2020 08:01
[2020-06-30] MEDS: IV NORMAL SALINE 1,000ML 1,000 ML IV SCH (08:34)
[2020-06-30] MEDS: LACTOBACILLUS RHAMNOSUS GG 1 CAPSULE. PO SCH (08:34)
[2020-06-30] MEDS: SERTRALINE 100 MG TABLET. PO SCH (08:34)
[2020-06-30] MEDS: buPROPion XL 300 MG TAB.ER.24H. PO SCH (08:34)
[2020-06-30] MEDS: DEMECLOCYCLINE HCL 150 MG TABLET. PO SCH (08:34)
[2020-06-30] MEDS: ENOXAPARIN 40 MG/0.4 ML SYRINGE. SQ SCH (08:35)
[2020-06-30] MEDS ORDERED: FLU VACC QS 2020-21(6MOS+)/PF 0.5 ML SYRINGE. VAX IM ONE (09:00)
[2020-06-30] MEDS ORDERED: LEVO500T8 PO (10:01)
[2020-06-30] MEDS ORDERED: CEFD300C PO (10:01)
[2020-06-30] MEDS ORDERED: Demeclocycline Hcl PO (10:01)
[2020-06-30] MEDS ORDERED: DEXA6TAB6 PO (10:01)
--- NOTE | 2020-06-30 10:02 | DISCH ---
HOME HEALTH DISCHARGE/MEDS DISCHARGE INFORMATION: Condition on Discharge: Stable HOME HEALTH: Face to Face: I certify this patient is under my care and that I, or a nurse practitioner or physician's blood bank assistant working with me, had a face to face encounter that meets the physician face to face encounter requirements with this patient on [Date]. FOLLOW UP: Follow up with: dr nhan petersen respritc changes bandages to the left leg CERTIFICATION STATEMENT: Certification Statement: Based on the above finding, I certify that this patient is confined to the home and needs intermittent retirement care, physical therapy and/or speech therapy, or continues to need occupational therapy.~ This patient is under my care, and I have initiated the establishment of the plan of care.~ This patient will be followed by myself or a community physician who will periodically review the plan of care. DISCHARGE MEDICATIONS: Home Meds Active Scripts [Demeclocycline Hcl] 150 MG TABLET No Conflict Check, 150 MG PO Q12HR for siadh for 10 Days, #20 CAP Prov:ANGEL GORDON MD 06/30/20 Reported Medications Trazodone Hcl (TRAZODONE HCL) 50 Mg Tablet, 1 TAB PO QHS for insomnia, #30 TAB 1 Refill 10/26/19 Ipratropium/Albuterol Sulfate (DUONEB 0.5-3(2.5) MG/3 ML) 3 Ml Ampul.neb, 3 ML NEB QID for copd, EACH 10/26/19 Levothyroxine Sodium (LEVOTHYROXINE SODIUM) 25 Mcg Tablet, 1 TAB PO DAILY for hypothyroidism, #30 TAB 5 Refills 10/26/19 Bupropion Hcl (WELLBUTRIN XL) 300 Mg Tab.er.24h, 1 TAB PO DAILY for anxiety, #90 TAB 3 Refills 10/26/19 Sertraline Hcl (ZOLOFT) 100 Mg Tablet, 1 TAB PO BID for depression, #30 TAB 5 Refills 10/26/19 Albuterol Sulfate (ALBUTEROL SULFATE NEB SOLN ) 2.5 Mg/3 Ml Vial.neb, 2.5 MG NEB Q6-8HRS for copd, EACH 0 Refills 10/26/19 Albuterol Sulfate (PROAIR HFA INHALER) 8.5 Gm Hfa.aer.ad, 2 PUFF IH PRN Q4-6HRS PRN for wheezing for 21 Days, #1 INHALER 0 Refills 10/26/19 Budesonide/Formoterol Fumarate (SYMBICORT 160-4.5 MCG INHALER) 10.2 Gm Hfa.aer.ad, 2 PUFF IH BID for copd, INHALER 10/26/19 ANGEL GORDON MD Jun 30, 2020 10:02
--- NOTE | 2020-06-30 10:43 | NUR ---
NURSING NOTE FLU SHOT PT REFUSED FLU SHOT UPON DISCHARGE. TOM GUZMAN.
--- NOTE | 2020-06-30 12:17 | NUR ---
NURSING NOTE DISCHARGE PT DISCHARGED HOME VIA WHEELCHAIR PICKED UP BY . PT GIVEN WRITTEN AND VERBAL DISCHARGE INSTRUCTIONS. PT SCRIPTS CALLED INTO [facility]. PT GIVEN EDUCATION AT BEDSIDE IN REGARD TO FLUID RESTRICTION, WEIGHT GAIN PRECAUTIONS, AND FOLLOW UP INSTRUCTIONS. PT VERBALIZED AGREEMENT TO EDUCATION AND DENIES ANY QUESTIONS. PT REFUSED FLU SHOT AT DISCHARGE. NO COMPLICATIONS. TOM GUZMAN.
--- NOTE | 2020-07-01 10:34 | DS ---
DATE OF DISCHARGE: 06/30/2020 HOSPITAL COURSE: A 59-year-old female came in with multiple medical problems. The patient initially had come in to get a PICC line for cellulitis of her left lower leg, which had been unresponsive to oral antibiotics; however, while getting the PICC line, the patient was noted to have respiratory problems and her oxygen saturation dropped down to 80%. She is having difficulty breathing. We had placed her on BiPAP. She refused intubation. The patient's sodium was also noted to be low at 113. As a result of this, the patient was admitted. She was placed in the ICU for intensive care therapy and monitoring of her breathing problems. She was given aggressive pulmonary toilet. The patient's chest x-ray showed multifocal pneumonias possibly superimposed with pulmonary edema. The correction of the sodium was done judiciously with small amounts of hypertonic saline and then given to the episodes of mild diuresis with some Lasix. The patient's labs demonstrated the patient's white count did come down from 12,000 down to 10 and hemoglobin remained stable around 12, platelets were basically stable with normal differential. The patient's chemistries gradually showed the sodium has come up from 113, [address] up to 127, BUN and creatinine of 13 and 0.6. Blood sugars were being monitored on Accu-Cheks there. The patient's lactic acid was unremarkable. She did have an elevated D-dimer, but must be remembered this patient has a history of lung cancer and she had had a CTA previous day here and was negative. In any case, gradually tapered her off the BiPAP. She continued to make excellent progress. With this, her blood pressure remained about 135/85, respiratory rate 20, pulse 80, on 2.5 to 3 liters if she was at 97%. The patient's lungs were diminished, but basically cleared up. She is afebrile. She received physical and occupational therapy and eventually she demanded and was granted discharge home. Her left lower leg did show a marked improvement and was receiving IV antibiotic while in the hospital. IMPRESSION: Acute on chronic respiratory failure syndrome, respiratory acidosis, multi lobe pneumonia, cellulitis of the left lower leg, sepsis, exacerbation of chronic obstructive pulmonary disease with acute respiratory disease, syndrome of inappropriate antidiuretic hormone, hyponatremia, morbid obesity, hyperglycemia, elevated D-dimer secondary probably to her lung cancer. PLAN: The patient will be discharged on probably a regular diet for now. Monitor calories. Monitor blood sugars. See MRAD. Decreased activity. Encouraged to stop smoking and to follow up with her furniture technician and oncologist and followup with the primary care doctors as well to monitor her potassium and her other multiplicity of medical issues. ANGEL GORDON MD DR: PRISCILLA/darrell JOB#: [id number] / [id number]
== END 2020-06-30 12:10 | disposition home or self-care (01) | DRG 871 ==
LOC: 1 SOUTH 18:57 → ICU 21:30 → 1 SOUTH 06-29 06:30
PROVIDERS: ADMIT Family Medicine; ATTEND Family Medicine
PROC: 5A09357 Assistance with Respiratory Ventilation, Less than 24 Consecutive Hours, Continuous Positive Airway Pressure (ICD-10-PCS; principal; 2020-06-27)
PROC: 5A09357 Assistance with Respiratory Ventilation, Less than 24 Consecutive Hours, Continuous Positive Airway Pressure (ICD-10-PCS; 2020-06-28)
DX: A41.9 Sepsis, unspecified organism (principal); I50.33 Acute on chronic diastolic (congestive) heart failure; J18.9 Pneumonia, unspecified organism; J96.20 Acute and chronic respiratory failure, unspecified whether with hypoxia or hypercapnia; C34.90 Malignant neoplasm of unspecified part of unspecified bronchus or lung; E22.2 Syndrome of inappropriate secretion of antidiuretic hormone; J44.0 Chronic obstructive pulmonary disease with (acute) lower respiratory infection; J44.1 Chronic obstructive pulmonary disease with (acute) exacerbation; L03.116 Cellulitis of left lower limb; E87.2 Acidosis; E03.9 Hypothyroidism, unspecified; E66.01 Morbid (severe) obesity due to excess calories; F17.200 Nicotine dependence, unspecified, uncomplicated; Z82.49 Family history of ischemic heart disease and other diseases of the circulatory system; R73.9 Hyperglycemia, unspecified; Z20.828 Contact with and (suspected) exposure to other viral communicable diseases
CPT/HCPCS: 36415; 36600; 71045; 80048; 80053; 80202; 81001; 82803; 83605; 83880; 83930; 85007; 85025; 85379; 94640; 94660; 94760; J1100; J1650; J1956; J2060; J3370; J3490; J7040; J7030; U0003-CS

== ENCOUNTER → 2020-06-27 | Outpatient (CLI) | payer OTHER ==
[~2020-06-27] MED LIST changes: +CEFD300C PO; +DEXA6TAB6 PO; +Demeclocycline Hcl PO; +IV NORMAL SALINE 500ML 500 ML IV ONE; +LEVO500T8 PO; +VANCOMYCIN 2 GM in IV NORMAL SALINE 500ML 500 ML IV ONE
--- NOTE | 2020-06-27 16:40 | NUR ---
Allergies and reactions Yes INR BUN Cr Platelets Yes Order Verified Yes Consent signed Yes Previous PICC placement No Past Medical/Surgical history and current diagnosis reviewed Yes Patient Medical /Surgical History Related to PICC line placement None Special considerations for PICC line placement Infections PICC placement indication Caustic medication class drug usage, halfway antibiotic usage, Multiple/ Frequent blood draws. Name of PICC Nurse Radhika Daniel, [employer], [place]
--- NOTE | 2020-06-27 17:00 | NUR ---
Procedure: Following complete explanation of the PICC procedure including the indications, risks, and potential complications, informed consent was obtained. The possibility for infection was discussed along with signs, symptoms, and prevention. All pt questions were answered, understanding verbalized. IV Device Protocol was used. Written and verbal patient education was provided. Hand hygiene performed. Standardized central line checklist was utilized. The patient was placed in the supine position, the right arm was prepped with chlorhexidine and patient draped with maximum sterile barrier. 2 mL 1% lidocaine was infiltrated into the skin to provide local anesthesia. A thorough assessment of right upper extremity completed. Using real-time ultrasound guidance and standardized micro puncture set, the Basilic vein was punctured and a peel away sheath was placed using the modified Seldinger technique. A tip location device was used to ensure adequate catheter placement. The catheter was secured using a securement device and an antimicrobial patch was applied directly on the insertion site followed by a transparent dressing. The single port withdrew blood and flush without resistance. Patient tolerated the procedure without apparent complications. Single Lumen Power PICC placement successful and uncomplicated. Placement verified by EKG tip confirmation system. Complications: None 50cm in, 0cm out Radhika Daniel APRN, LORI.
[2020-06-27 17:30] LABS: CALCIUM 8.7 mg/dL (8.5-10.1); CREATININE 0.4 mg/dL (0.6-1.0); GFR 163.4; POTASSIUM 4.8 mmol/L (3.5-5.1)
--- NOTE | 2020-06-27 17:40 | NUR ---
Lab called with critical Sodium of 113. Dr. Lim called for orders, recommended admission for IVF overnight, but pt strongly refusing. Pt is agreeable for IVFs while Vanco infusion. Pt again encouraged to stay overnight with at bedside, still refusing. Pt highly encouraged to follow up with doctor in AM for lab recheck.
[2020-06-27 17:48] VITALS: BP 159/82
== END | disposition home or self-care (01) ==
LOC: OPINF 16:56
PROVIDERS: ATTEND Family Medicine
DX: L03.116 Cellulitis of left lower limb (principal); I50.32 Chronic diastolic (congestive) heart failure; J44.9 Chronic obstructive pulmonary disease, unspecified; E03.9 Hypothyroidism, unspecified; E78.5 Hyperlipidemia, unspecified; E66.01 Morbid (severe) obesity due to excess calories; Z87.891 Personal history of nicotine dependence
CPT/HCPCS: 36415; 36569; 80048; 96365; 96366; J3370; J7040; 36591

== ENCOUNTER 2020-09-17 12:29 | Inpatient (IN) | payer OTHER ==
[~2020-09-17] VITALS: Ht 170.2 cm; Wt 116.0 kg
[~2020-09-17 12:29] MED LIST changes: +CEFD300C PO; +DEXA6TAB6 PO; +Demeclocycline Hcl PO; +LEVO500T8 PO
--- NOTE | 2020-09-17 12:37 | PHYS DOC ---
Past History Past Medical History: Cancer (Lung), COPD, Hypertension Smoking: Cigarettes Adult General Chief Complaint Chief Complaint: BLOOD SUGAR PROBLEM HPI HPI Patient is a 60-year-old female presenting via EMS for multiple complaints. EMS was called by who is concerned about past 48-hour decline he has witnessed and patient. Reports she has had worsened fatigue, generalized weakness and inability to care for self in addition to increased short of breath. Nothing known makes better or worse. Patient reports being compliant with all home medications. Patient denies any recent medication changes, travel or sick contacts. On EMS arrival, patient was requiring more than her typical 2 L oxygen via nasal cannula to maintain saturations greater than 90%. She was tachycardic but otherwise remaining vitals were unremarkable. Fingerstick blood glucose was checked in route and measured greater than 400, patient has no known history of diabetes. On arrival, patient stating " I just feel weak and hurt all over, it is hard to breathe". Denies COVID-19 contact, syncope, lightheadedness or dizziness, falls, chest pain, hemoptysis, productive cough, abdominal pain, urinary symptoms, changes in bladder or bowel function, no motor or sensory function changes past baseline. Review of Systems Review of Systems Fourteen body systems of review of systems have been reviewed. See HPI for pertinent positives and negative responses, other ovalle all other systems are negative, non-pertinent or non-contributory Allergies Allergies Allergies Coded Allergies Type Severity Reaction Last Updated Verified No Known Drug Allergies 03/23/19 No Physical Exam Physical Exam Constitutional: Well developed, well nourished, no acute distress, non-toxic appearance. HENT: Normocephalic, atraumatic, bilateral external ears normal, oropharynx moist, no oral exudates, nose normal. Eyes: PERRLA, EOMI, conjunctiva normal, no discharge. Neck: Normal range of motion, no tenderness, supple, no stridor. Cardiovascular: Heart rate regular, sinus rhythm, no murmurs rubs or gallops Lungs & Thorax: Bilateral breath sounds clear to auscultation Abdomen: Bowel sounds normal, soft, no tenderness, no masses, no pulsatile masses. Nonsurgical abdomen, no peritoneal signs Skin: Warm, dry, no erythema, no rash. Back: No tenderness, no CVA tenderness. Extremities: No tenderness, no cyanosis, no clubbing, ROM intact, 1+ pitting edema to bilateral lower extremities with findings consistent with venous stasis Neurologic: Alert and oriented X 3, grossly normal motor & sensory function, no focal deficits noted. Psychologic: Affect normal, judgement normal, mood normal. Current Patient Data Vital Signs Vital Signs Date Time Temp Pulse Resp B/P (MAP) Pulse Ox O2 Delivery O2 Flow Rate FiO2 09/17/20 12:40 98.2 116 24 156/77 (103) 94 Nasal Cannula 3.0 Lab Results Laboratory Tests Test 09/17/20 12:38 09/17/20 12:44 09/17/20 13:23 Bedside Venous pH 7.61 Bedside Venous pCO2 51 mmHg Bedside Venous pO2 51 mmHg Venous Blood HCO3 50 mmol/L POC Venous O2 Saturation (Isaac) 90 % Bedside FiO2 30 White Blood Count 8.6 x10^3/uL Red Blood Count 3.53 x10^6/uL Hemoglobin 10.1 g/dL Hematocrit 29.6 % Mean Corpuscular Volume 84 fL Mean Corpuscular Hemoglobin 29 pg Mean Corpuscular Hemoglobin Concent 34 g/dL Red Cell Distribution Width 18.8 % Platelet Count 55 x10^3/uL Neutrophils (%) (Auto) 92 % Lymphocytes (%) (Auto) 5 % Monocytes (%) (Auto) 3 % Eosinophils (%) (Auto) 0 % Basophils (%) (Auto) 0 % Neutrophils # (Auto) 7.9 x10^3uL Lymphocytes # (Auto) 0.4 x10^3/uL Monocytes # (Auto) 0.3 x10^3/uL Eosinophils # (Auto) 0.0 x10^3/uL Basophils # (Auto) 0.0 x10^3/uL Segmented Neutrophils % 84 % Lymphocytes % 3 % Monocytes % 4 % Eosinophils % 2 % Basophils % 4 % Metamyelocytes % 3 % Platelet Estimate Decreased Sodium Level 129 mmol/L Potassium Level 3.9 mmol/L Chloride Level 89 mmol/L Carbon Dioxide Level 43 mmol/L Anion Gap -3 Blood Urea Nitrogen 21 mg/dL Creatinine 0.8 mg/dL Estimated GFR (Cockcroft-Gault) 73.2 BUN/Creatinine Ratio 26 Glucose Level 426 mg/dL Lactic Acid Level 1.9 mmol/L Calcium Level 8.9 mg/dL Total Bilirubin 3.2 mg/dL Aspartate Amino Transf (AST/SGOT) 97 U/L Alanine Aminotransferase (ALT/SGPT) 228 U/L Alkaline Phosphatase 335 U/L Creatine Kinase 103 U/L Troponin I Quantitative 0.049 ng/mL [id number]-[id number]-Type Natriuretic Peptide 4974 pg/mL Total Protein 5.6 g/dL Albumin 2.1 g/dL Albumin/Globulin Ratio 0.6 Lipase 218 U/L Glucose (Fingerstick) 440 mg/dL Current Medications Medications (Trade) Dose Ordered Sig/Main Route PRN Reason Start Time Stop Time Status Last Admin Dose Admin Aspirin (Aspirin Chewable) 324 mg 1X ONCE PO 09/17/20 12:45 09/17/20 12:46 DC 09/17/20 13:26 Sodium Chloride 1,000 ml @ 1,000 mls/hr Q1H IV 09/17/20 12:45 09/17/20 13:44 DC 09/17/20 13:26 Ceftriaxone Sodium 1 gm/ Sodium Chloride 50 ml @ 100 mls/hr 1X ONCE IV 09/17/20 13:30 09/17/20 13:59 DC 09/17/20 14:13 Azithromycin (Zithromax) 500 mg 1X ONCE PO 09/17/20 13:30 09/17/20 13:40 DC 09/17/20 14:11 Acetaminophen (Tylenol) 650 mg PRN Q4HRS PRN PO FEVER > 100.3'F 09/17/20 13:45 09/18/20 13:44 09/17/20 14:13 Sodium Chloride 50 ml @ As Directed STK-MED ONCE .ROUTE 09/17/20 14:05 09/17/20 14:05 DC Ceftriaxone Sodium (Rocephin) 1 gm STK-MED ONCE .ROUTE 09/17/20 14:05 09/17/20 14:05 DC EKG EKG EKG ordered and interpreted by myself 1313 hrs. as sinus rhythm at 127 bpm, prolonged QTC at 474 and OH 118 otherwise intervals unremarkable, left axis deviation, no STEMI Radiology/Procedures Radiology/Procedures EXAM: Chest, single view. HISTORY: Chest pain. COMPARISON: 06/27/2020 FINDINGS: A frontal view of the chest is obtained. There is stable masslike consolidation within the lateral right upper lobe superimposed on diffuse interstitial infiltrate and small pleural effusions. There is also right perihilar nodular opacity. The heart is stable in size. There is no pneumothorax. IMPRESSION: 1. Stable masslike consolidation within the lateral right upper lobe. Follow-up to confirm resolution and exclude an underlying lesion. 2. Stable diffuse interstitial infiltrate with suspected superimposed right perihilar nodular infiltrate. 3. Stable small pleural effusions. Electronically signed by: Kalyn Caldera MD (09/17/2020 1:00 PM) [id number] Heart Score HEART Score for Chest Pain: HEART Score for Chest Pain Response (Comments) Value History Slighlty/Non-Suspicious 0 ECG Normal 0 Age >45 - < 65 1 Risk Factors >3 Risk Factors or Hx CAD 2 Troponin < Normal Limit 0 Total 3 Risk Factors: Risk Factors: DM, Current or recent (<one month) smoker, HTN, HLP, family history of CAD, obesity. Risk Scores: Risk Factors: DM, Current or recent (<one month) smoker, HTN, HLP, family history of CAD, obesity. Course & Med Decision Making Course & Med Decision Making Pertinent Labs and Imaging studies reviewed. (See chart for details) Discussed most likely diagnosis of pneumonia, acute on chronic respiratory failure and hyperglycemia in patient without history of diabetes. In addition, she has gross electrolyte abnormalities and other findings such as transaminitis of unknown cause that will require work-up Patient responded to ER intervention but still requiring 4 L oxygen via nasal cannula which is past baseline of her typical 2 L oxygen daily. I contacted patient's PCP who will also serve his hospitalist, he agreed need for admission and accepted patient under his care I updated patient on proposed plan of care for hospital admission and she was amenable. All questions and concerns addressed prior to ER transport to [facility] for admission Critical Care Time This patient required critical care. Due to the fact that the patient required a significant amount of one on one physician - patient contact time, ordering and review of studies, arranging urgent treatment with development of a management plan, evaluation of patients response to treatment with frequent reassessments, and discussions with other providers this patient required critical care time in excess of 30 minutes. Critical care time was indicated due to the inherent instability and/or potential for instability in this patient. The critical care time that is allocated to this patient is above and beyond any time spent on any other billable procedures performed on this patient. Dragon Disclaimer Dragon Disclaimer This electronic medical record was generated, in whole or in part, using a voice recognition dictation system. Departure Departure: Impression: Primary Impression: PNA (pneumonia) Additional Impressions: History of lung cancer Acute and chronic respiratory failure Acute hyperglycemia Disposition: 09 ADMITTED INPT THIS HOSP Admitting Physician: Angel Gordon Condition: STABLE Referrals: ANGEL GORDON MD (PCP) Problem Qualifiers OLYA REID DO Sep 17, 2020 12:37
[2020-09-17] MEDS ORDERED: IV NORMAL SALINE 1,000ML 1,000 ML IV SCH (12:45)
[2020-09-17] MEDS ORDERED: ASPIRIN CHEWABLE 81 MG TABLET. PO ONE (12:45)
[2020-09-17 13:03] LABS: BASO % 0 % (0-3); EOS % 0 % (0-3); HEMATOCRIT 29.6 % (36.0-47.0); HEMOGLOBIN 10.1 g/dL (12.0-15.5); LYMPH # 0.4 x10^3/uL (1.0-4.8); LYMPH % 5 % (24-48); MEAN CORPUSCULAR HEMOGLOBIN 29 pg (25-35); MEAN CORPUSCULAR HGB CONC 34 g/dL (31-37); MEAN CORPUSCULAR VOLUME 84 fL (79-100); MONO # 0.3 x10^3/uL (0.0-1.1); MONO % 3 % (0-9); NEUT # 7.9 x10^3uL (1.8-7.7); NEUT % 92 % (31-73); PLATELET COUNT 55 x10^3/uL (140-400); RED BLOOD COUNT 3.53 x10^6/uL (3.50-5.40); RED CELL DISTRIBUTION WIDTH 18.8 % (11.5-14.5); WHITE BLOOD COUNT 8.6 x10^3/uL (4.0-11.0)
--- NOTE | 2020-09-17 13:03 | RAD ---
EXAM: Chest, single view. HISTORY: Chest pain. COMPARISON: 06/27/2020 FINDINGS: A frontal view of the chest is obtained. There is stable masslike consolidation within the lateral right upper lobe superimposed on diffuse interstitial infiltrate and small pleural effusions. There is also right perihilar nodular opacity. The heart is stable in size. There is no pneumothorax . IMPRESSION: 1. Stable masslike consolidation within the lateral right upper lobe. Follow-up to confirm resolution and exclude an underlying lesion. 2. Stable diffuse interstitial infiltrate with suspected superimposed right perihilar nodular infiltr ate. 3. Stable small pleural effusions. Electronically signed by: Kalyn Caldera MD (09/17/2020 1:00 PM) [id number]
[2020-09-17 13:18] LABS: CALCIUM 8.9 mg/dL (8.5-10.1); CREATININE 0.8 mg/dL (0.6-1.0); GFR 73.2; POTASSIUM 3.9 mmol/L (3.5-5.1)
[2020-09-17 13:30] LABS: ALBUMIN 2.1 g/dL (3.4-5.0); ALBUMIN/GLOBULIN RATIO 0.6 (1.0-1.7); TOTAL BILIRUBIN 3.2 mg/dL (0.2-1.0); TOTAL PROTEIN 5.6 g/dL (6.4-8.2)
[2020-09-17] MEDS ORDERED: AZITHROMYCIN 250 MG TABLET. PO ONE (13:30)
[2020-09-17 13:38] LABS: % BASOS 4 % (0-3); % EOS 2 % (0-5); % LYMPHS 3 % (24-48); % METAS 3 % (0-0); % MONOS 4 % (0-10); % SEGS 84 % (35-66)
[2020-09-17 13:41] LABS: PLT ESTIMATE DECREASED (ADEQUATE)
[2020-09-17] MEDS ORDERED: IV NORMAL SALINE 50ML 50 ML ONE (14:05)
[2020-09-17] MEDS ORDERED: cefTRIAXone SODIUM 1 GM VIAL ONE (14:05)
[2020-09-17] MEDS: ACETAMINOPHEN 325 MG TABLET PO PRN (14:13)
--- NOTE | 2020-09-17 14:58 | EKG ---
[address] [address] Test Date: 2020-09-17 Test Time: 13:03:51 Pat Name: MATT WILIKNS Department: Room: Gender: F [employer]: ELANA : 1960 Requested By: OLYA REID Order Number: [id number] Reading MD: Measurements Intervals [place] Rate: 127 P: 43 MS: 118 QRS: 22 QRSD: 78 T: 225 QT: 322 QTc: 474 Interpretive Statements SINUS TACHYCARDIA VENTRICULAR PREMATURE COMPLEX(ES) ATRIAL PREMATURE COMPLEX(ES), BIGEMINY ST & T ABNORMALITY, CONSIDER LATERAL ISCHEMIA OR LEFT VENTRICULAR STRAIN INFEROLATERAL ISCHEMIA OR LEFT VENTRICULAR STRAIN ABNORMAL ECG RI6.02 No previous ECG available for comparison
[2020-09-17] MEDS ORDERED: INSULIN REGULAR 100 UNIT/ML 3ML VIAL. IV ONE ×2 (16:45→18:30)
[2020-09-17 18:58] LABS: AMPHETAMINE/METHAMPHETAMINE NEG (NEG); BARBITURATES NEG (NEG); BENZODIAZEPINES NEG (NEG); CANNABINOIDS NEG (NEG); COCAINE NEG (NEG); METHADONE NEG (NEG); OPIATES NEG (NEG); PHENCYCLIDINE NEG (NEG)
[2020-09-17 19:28] LABS: BACTERIA,URINE 0 /HPF (0-FEW); BILIRUBIN,URINE LARGE (NEG); CLARITY,URINE CLEAR; COLOR,URINE AMBER; GLUCOSE,URINE 250 mg/dL (NEG); NITRITE,URINE POS (NEG); SQUAMOUS EPITHELIAL CELL,UR MOD /LPF; UROBILINOGEN,URINE >=8.0 mg/dL (0.2 mg/dL); WBC,URINE 0 /HPF (0-4)
--- NOTE | 2020-09-17 19:45 | NUR ---
ADMISSION: The patient, MATT WILKINS, 60 y/o, F admitted by ANGEL GORDON MD, was given written information regarding hospital policies, unit procedures and contact persons. Pt arrived to room 117 via [facility], accompanied by [facility] and nursing staff. Pt transferred x3 from [place] to bed. Pt reports she is unable to move on her own. Pt reports increased fatigue and weakness over the past couple days, along with SOA and inability to care for herself. Pt has been using briefs as she is unable to get herself to the bathroom. Pt resides at home with her and youngest daughter of 8 children. Pt normally wears 2L of O2 via NC at home. Case management referral placed. POC discussed, pt V/U. Call light in reach. Valuables were checked and logged.
[2020-09-17 20:01] VITALS: BP 133/78
--- NOTE | 2020-09-17 21:00 | NUR ---
PMH AND HOME MEDS REVIEWED WITH PT'S . DROPPED OF CELL PHONE AND PERSONAL BAG. ITEMS INVENTORIED AND LEFT AT BEDSIDE WITH PT.
[2020-09-17] MEDS ORDERED: INSULIN LISPRO 300 UNITS/3 ML VIAL. SQ SCH (22:45)
--- NOTE | 2020-09-17 22:45 | NUR ---
HOME MEDS SENT TO PHARMACY FOR DURATION OF STAY.
[2020-09-17] MEDS: IV NORMAL SALINE 1,000ML 1,000 ML IV SCH (23:18)
[2020-09-17 23:41] VITALS: BP 126/72
[2020-09-18] MEDS: ACETAMINOPHEN 325 MG TABLET PO PRN ×2 (00:52→08:12)
[2020-09-18 05:25] VITALS: BP 150/83
[2020-09-18] MEDS: IPRATRPIUM/ALBUTEROL 0.5/2.5MG 3 ML NEBU. NEB SCH ×4 (06:10→20:09)
[2020-09-18] MEDS: LEVOTHYROXINE 25 MCG TABLET. PO SCH (06:13)
[2020-09-18] MEDS: SERTRALINE 100 MG TABLET. PO SCH ×2 (08:10→20:51)
[2020-09-18] MEDS: buPROPion XL 300 MG TAB.ER.24H. PO SCH (08:10)
[2020-09-18] MEDS ORDERED: ALBUTEROL SULFATE 2.5 MG/3 ML NEBU. IH PRN (09:15)
[2020-09-18] MEDS: DEMECLOCYCLINE HCL 150 MG TABLET. PO SCH ×2 (09:45→20:51)
[2020-09-18] MEDS ORDERED: MORPHINE SULFATE 2 MG/ML DISP.SYRIN. IV ONE (09:45)
[2020-09-18] MEDS ORDERED: FUROSEMIDE 20 MG/2 ML VIAL IVP ONE (09:45)
[2020-09-18] MEDS: CARVEDILOL 3.125 MG TABLET PO SCH ×2 (09:54→17:03)
[2020-09-18] MEDS: INSULIN LISPRO 300 UNITS/3 ML VIAL. SQ SCH ×4 (09:56→20:52)
[2020-09-18] MEDS: INSULIN GLARGINE SYRINGE. SQ SCH ×2 (10:00→21:04)
--- NOTE | 2020-09-18 10:29 | NUR ---
NURSING NOTE-PT REFUSES PT/OT SCREEN TODAY. SHE STATES "I JUST WANT TO LAY HERE AND GET BETTER." EDUCATED THAT THE SCREEN IS PHYSICIAN ORDERED, AND MOBILITY IS IMPORTANT TO IMPROVEMENT. PT CONTINUES TO REFUSE.
[2020-09-18 11:10] VITALS: BP 148/65
--- NOTE | 2020-09-18 11:31 | HP ---
ADMIT DATE: 09/17/2020 HISTORY OF PRESENT ILLNESS: A 60-year-old female with history of lung cancer, here for the last 3-4 days is having increased shortness of breath and difficulty breathing. The patient also notes worsening fatigue, generalized weakness, inability to care for self, general lethargy. The patient lays pretty much in bed as a limp rag. The patient also noted when she came in through the Emergency Room, her blood sugar was greater than 400. She was dehydrated, but at the same time had low sodium and at the same time appeared to be in some form of heart failure as well. Multiple medical problems, oxygen saturation on 2 liters was only at 90%. The patient was also very tachycardic upon admission and as noted due to the complexity of her multiple medical issues, the patient was admitted to the hospital for further evaluation and treatment. PAST MEDICAL HISTORY: As noted, positive for hypertension. She has had a history of COPD, asthma, lung cancer in the right upper lobe. She is on chronic oxygen therapy, appendectomy, recent debilitating weaknesses, diabetes, hypothyroidism. She has a chronic SIADH, is on demeclocycline for such. She has a history of depression, history previously of smoking, but stopped smoking. She has had radiation therapy, influenza vaccination has been refused. PAST SURGICAL HISTORY: Appendectomy. FAMILY HISTORY: Mother with pancreatic and breast cancers. ALLERGIES: None known. MEDICATIONS: The patient's reconciliation of her medications include that of DuoNeb treatments, albuterol p.r.n., Wellbutrin 300, sertraline 100, levothyroxine 25, and demeclocycline 150 mg q.12. SOCIAL HISTORY: As noted, had about a [id number] history of smoking, has quit here last couple of years. Denies alcohol or drug use. Full code. REVIEW OF SYSTEMS: Outside of the shortness of breath, orthopnea, dyspnea, generalized weakness and lethargy, the patient denies chest pain per se. Denies abdominal pain. Denies any nausea, vomiting, but generally weakness. PHYSICAL EXAMINATION: GENERAL: This is a very ill-appearing white female, very limp and bedded, almost like a thrown sheet on the bed where she has been twisted with ability to straighten herself up. VITAL SIGNS: Her blood pressure has been up to 160/70, respiratory rate 24, pulse 116, temperature has been stable in the 98-99 range. She is on 3 liters of O2 at 92%. HEENT: The patient otherwise her head is atraumatic and normocephalic. Eyes: PERRLA without jaundice. Mouth and throat: Poor dentition. NECK: Supple without JVD, carotid or thyromegaly. LUNGS: Diminished with rhonchi noted in the bases. CARDIOVASCULAR: Shows regular sinus rhythm, tachy with premature beats. The patient's EKG shows sinus tachycardia with multiple PVCs and APCs as well. ABDOMEN: The patient's abdomen was protuberant, soft, tender. EXTREMITIES: +2 pitting edema. Pulses noted distally. NEUROLOGIC: Alert and oriented, but she has a very weak voice, very soft, hard to appreciate all her sounds. No obvious focal neurological obviously concerned about possible mets to the brain itself. LABORATORY DATA: The patient's labs showed large amount of bilirubin, positive for nitrites, sugars 300-400. Hemoglobin 10, hematocrit 29, white count 8, platelets down to 55,000. Sodium chronically low 129, potassium 3.9, BUN and creatinine 21 and 0.8, GFR 73, blood sugar on admission 440. Lactic acid 1.9. AST of 97, ALT of 228, alkaline phosphatase 335. BNP of about 5000. Urine is noted, she does have nitrites. We will do a culture, abdominal ultrasound and make further evaluation. She is also complaining of severe rib pain. When she was picked up off the floor, the patient had multiple rib crunching. IMPRESSION: Sepsis, acute exacerbation of chronic obstructive pulmonary disease with respiratory failure and hypoxia, type 2 diabetes poorly controlled, syndrome of inappropriate antidiuretic hormone secretion, lung cancer right upper lobe, elevated liver enzymes, acute on top of chronic diastolic heart failure, severe protein malnutrition, pneumonia of unspecified etiology per chest x-ray showed right perihilar nodular infiltrate. PLAN: The patient will be placed on azithromycin as well as Rocephin, get a urine culture, also give her Lasix, morphine for pain and have Cardiology review her as well. The patient is a full code. ANGEL GORDON MD DR: PRISCILLA/darrell JOB#: [id number] / [id number]
[2020-09-18] MEDS ORDERED: MORPHINE SULFATE 2 MG/ML DISP.SYRIN. IV PRN (11:45)
[2020-09-18] MEDS ORDERED: IPRATRPIUM/ALBUTEROL 0.5/2.5MG 3 ML NEBU. NEB SCH (12:00)
[2020-09-18] MEDS: IV NORMAL SALINE 1,000ML 1,000 ML IV SCH (12:03)
--- NOTE | 2020-09-18 14:37 | RAD ---
EXAM: Chest and bilateral ribs, 8 views. HISTORY: Pain. COMPARISON: 09/17/2020 FINDINGS: Frontal views of the chest and multiple views of both ribs are obtained. There are are late ral right fifth, sixth and seventh rib fractures of uncertain chronicity. There is overlying pleural thickening or trace pleural fluid. There are multiple chronic appearing bilateral rib fractures. Ther e are masslike opacities involving the right upper thorax. There is diffuse increased interstitial op acity with suspected small right pleural effusion. The heart is normal in size. There is incidental c alcification of the left rotator cuff. IMPRESSION: 1. Right upper thorax mass like pulmonary opacities due to neoplasm or multifocal consolidation. This can be better characterized with a CT. 2. Diffuse interstitial infiltrate with suspected small right pleural effusion. 3. Lateral right fifth, sixth and seventh rib fractures of uncertain chronicity. Correlate for point tenderness in this location. These are superimposed on multiple chronic appearing rib fractures. Electronically signed by: Kalyn Caldera MD (09/18/2020 2:35 PM) [id number]
[2020-09-18 14:52] VITALS: BP 136/76
[2020-09-18] MEDS ORDERED: levoFLOXacin PER PHARMACY 1 EACH. MC PRN ×2 (18:30)
[2020-09-18 19:03] VITALS: BP 99/64
[2020-09-18] MEDS: LACTOBACILLUS RHAMNOSUS GG 1 CAPSULE. PO SCH (20:51)
[2020-09-18 22:17] VITALS: BP 138/82
[2020-09-19] MEDS: IV NORMAL SALINE 1,000ML 1,000 ML IV SCH ×2 (04:01→17:27)
[2020-09-19 05:00] VITALS: BP 149/76
[2020-09-19] MEDS: IPRATRPIUM/ALBUTEROL 0.5/2.5MG 3 ML NEBU. NEB SCH ×4 (05:12→20:15)
--- NOTE | 2020-09-19 05:13 | NUR ---
pt said if she is asleep in early am, to let her remain asleep.
[2020-09-19 06:15] LABS: BASO % 0 % (0-3); EOS % 0 % (0-3); HEMATOCRIT 25.2 % (36.0-47.0); HEMOGLOBIN 8.4 g/dL (12.0-15.5); LYMPH # 0.5 x10^3/uL (1.0-4.8); LYMPH % 8 % (24-48); MEAN CORPUSCULAR HEMOGLOBIN 28 pg (25-35); MEAN CORPUSCULAR HGB CONC 33 g/dL (31-37); MEAN CORPUSCULAR VOLUME 84 fL (79-100); MONO # 0.3 x10^3/uL (0.0-1.1); MONO % 4 % (0-9); NEUT # 6.2 x10^3uL (1.8-7.7); NEUT % 88 % (31-73); PLATELET COUNT 38 x10^3/uL (140-400); RED BLOOD COUNT 2.99 x10^6/uL (3.50-5.40); WHITE BLOOD COUNT 7.1 x10^3/uL (4.0-11.0)
[2020-09-19 06:22] LABS: CALCIUM 8.4 mg/dL (8.5-10.1); CREATININE 0.7 mg/dL (0.6-1.0); GFR 85.4
[2020-09-19 06:26] LABS: POTASSIUM 2.6 mmol/L (3.5-5.1)
[2020-09-19] MEDS ORDERED: ELECTROLYTE (NON-ICU) PROTOCOL. MC PRN ×2 (06:30→18:45)
[2020-09-19] MEDS: POTASSIUM BICARB 10 MEQ EFFERVESCENT TABLET. FT SCH ×2 (08:46→12:32)
[2020-09-19] MEDS: LEVOTHYROXINE 25 MCG TABLET. PO SCH (08:47)
[2020-09-19] MEDS: LACTOBACILLUS RHAMNOSUS GG 1 CAPSULE. PO SCH ×2 (08:47→21:43)
[2020-09-19] MEDS: FUROSEMIDE 20 MG/2 ML VIAL IVP SCH (08:47)
[2020-09-19] MEDS: buPROPion XL 300 MG TAB.ER.24H. PO SCH (08:47)
[2020-09-19] MEDS: SERTRALINE 100 MG TABLET. PO SCH ×2 (08:47→21:45)
[2020-09-19] MEDS: CARVEDILOL 3.125 MG TABLET PO SCH ×2 (08:47→17:26)
[2020-09-19] MEDS: DEMECLOCYCLINE HCL 150 MG TABLET. PO SCH ×2 (08:47→21:49)
[2020-09-19] MEDS: INSULIN LISPRO 300 UNITS/3 ML VIAL. SQ SCH ×4 (08:54→21:00)
[2020-09-19] MEDS: INSULIN GLARGINE SYRINGE. SQ SCH ×2 (08:54→21:57)
[2020-09-19 10:59] VITALS: BP 106/56
[2020-09-19] MEDS: AZITHROMYCIN 250 MG TABLET. PO SCH (12:32)
[2020-09-19 15:47] VITALS: BP 118/66
--- NOTE | 2020-09-19 17:15 | PDOC2 ---
CONSULT DOS: DATE: 09/19/20 TIME: 17:00 Reason for Consult: Tachycardia, possible diastolic heart failure Referring Physician: Dr. Higgins Chief Complaint Fatigue and shortness of breath Source: Chart review, Patient Problem List Problems Medical Problems: (1) Acute and chronic respiratory failure Status: Acute (2) Acute hyperglycemia Status: Acute (3) History of lung cancer Status: Acute (4) PNA (pneumonia) Status: Acute History of Present Illness The patient is a 60-year-old female who was admitted through the emergency room for several days of increasing fatigue, weakness and shortness of breath. Her chest x-ray showed stable consolidation in the right upper lobe and stable diffuse infiltrates. Her EKG showed a sinus tachycardia rate of [address]-T wave changes. The patient unfortunately has a history of lung cancer as well as COPD. Glucose initially was elevated at 400. She states she is feeling somewhat better today. She denies any chest pain today. She continues to have shortness of breath and weakness. Pulmonary: Asthma, COPD Heme/Onc: Cancer Endocrine: Diabetes Past Surgical History: Appendectomy Family History: Cancer Smoke: Quit Current Medications Current Medications Aspirin (Aspirin Chewable) 324 mg 1X ONCE PO Last administered on 09/17/20at 13:26; Start 09/17/20 at 12:45; Stop 09/17/20 at 12:46; Status DC Sodium Chloride 1,000 ml @ 1,000 mls/hr Q1H IV Last administered on 09/17/20at 13:26; Start 09/17/20 at 12:45; Stop 09/17/20 at 13:44; Status DC Ceftriaxone Sodium 1 gm/ Sodium Chloride 50 ml @ 100 mls/hr 1X ONCE IV Last administered on 09/17/20at 14:13; Start 09/17/20 at 13:30; Stop 09/17/20 at 13:59; Status DC Azithromycin (Zithromax) 500 mg 1X ONCE PO Last administered on 09/17/20at 14:11; Start 09/17/20 at 13:30; Stop 09/17/20 at 13:40; Status DC Acetaminophen (Tylenol) 650 mg PRN Q4HRS PRN PO FEVER > 100.3'F Last administered on 09/18/20at 08:12; Start 09/17/20 at 13:45; Stop 09/18/20 at 13:44; Status DC Sodium Chloride 50 ml @ As Directed STK-MED ONCE .ROUTE ; Start 09/17/20 at 14:05; Stop 09/17/20 at 14:05; Status DC Ceftriaxone Sodium (Rocephin) 1 gm STK-MED ONCE .ROUTE ; Start 09/17/20 at 14:05; Stop 09/17/20 at 14:05; Status DC Insulin Human Regular (HumuLIN R VIAL) 2 unit 1X ONCE IV Last administered on 09/17/20at 16:45; Start 09/17/20 at 16:45; Stop 09/17/20 at 16:46; Status DC Insulin Human Regular (HumuLIN R VIAL) 5 unit 1X ONCE IV Last administered on 09/17/20at 18:35; Start 09/17/20 at 18:30; Stop 09/17/20 at 18:31; Status DC Albuterol/ Ipratropium (Duoneb) 3 ml RTQID NEB Last administered on 09/19/20at 15:21; Start 09/18/20 at 08:00 Levothyroxine Sodium (Synthroid) 25 mcg DAILY06 PO Last administered on 09/19/20at 08:47; Start 09/18/20 at 06:00 Sertraline HCl (Zoloft) 100 mg BID PO Last administered on 09/19/20at 08:47; Start 09/18/20 at 09:00 Bupropion HCl (Wellbutrin Xl) 300 mg DAILY PO Last administered on 09/19/20at 08:47; Start 09/18/20 at 09:00 Insulin Human Lispro (HumaLOG) 10 units 1X SQ Last administered on 09/17/20at 23:17; Start 09/17/20 at 22:45; Stop 09/18/20 at 09:47; Status DC Sodium Chloride 1,000 ml @ 75 mls/hr [id number] IV Last administered on 09/19/20at 04:01; Start 09/17/20 at 22:45 Albuterol Sulfate (Ventolin) 8.5 mg PRN Q2HRS PRN IH wheezing; Start 09/18/20 at 09:15 Demeclocycline HCl (Declomycin) 150 mg Q12HR PO Last administered on 09/19/20at 08:47; Start 09/18/20 at 09:30 Ceftriaxone Sodium 1 gm/ Sodium Chloride 50 ml @ 100 mls/hr Q24H IV Last administered on 09/19/20at 12:32; Start 09/18/20 at 13:00 Albuterol/ Ipratropium (Duoneb) 3 ml RTQID NEB ; Start 09/18/20 at 12:00; Status UNV Furosemide (Lasix) 20 mg DAILY IVP Last administered on 09/19/20at 08:47; Start 09/19/20 at 09:00 Furosemide (Lasix) 20 mg 1X ONCE IVP Last administered on 09/18/20at 09:54; Start 09/18/20 at 09:45; Stop 09/18/20 at 09:49; Status DC Morphine Sulfate (Morphine 2mg Syringe) 2 mg 1X ONCE IV Last administered on 09/18/20at 09:55; Start 09/18/20 at 09:45; Stop 09/18/20 at 09:48; Status DC Morphine Sulfate (Morphine 2mg Syringe) 2 mg PRN Q2HR PRN IV PAIN; Start 09/18/20 at 11:45 Insulin Human Lispro (HumaLOG) 10 units QIDACHS SQ Last administered on 09/19/20at 12:35; Start 09/18/20 at 09:45 Insulin Glargine (Lantus Syringe) 20 unit BID SQ Last administered on 09/19/20at 08:54; Start 09/18/20 at 10:00 Carvedilol (Coreg) 3.125 mg BIDWMEALS PO Last administered on 09/19/20at 08:47; Start 09/18/20 at 10:00 Azithromycin (Zithromax) 250 mg Q24H PO Last administered on 09/19/20at 12:32; Start 09/19/20 at 13:00 Lactobacillus Rhamnosus (Culturelle) 1 cap BID PO Last administered on 09/19/20at 08:47; Start 09/18/20 at 21:00 Levofloxacin/ Dextrose (Levaquin Per Pharmacy) 1 each PRN DAILY PRN MC SEE COMM ENTS; Start 09/18/20 at 18:30; Stop 09/18/20 at 18:33; Status DC Levofloxacin/ Dextrose (Levaquin Per Pharmacy) 1 each PRN DAILY PRN MC SEE COMMENTS; Start 09/18/20 at 18:30 Levofloxacin/ Dextrose 150 ml @ 100 mls/hr Q24H IV Last administered on 09/18/20at 19:17; Start 09/18/20 at 19:00 Potassium Bicarbonate (Potassium Effervescent Tablet) 40 meq Q4H FT Last administered on 09/19/20at 12:32; Start 09/19/20 at 08:00; Stop 09/19/20 at 12:01; Status DC Info (Non-Icu Electrolyte Protocol) 1 ea CONT PRN PRN MC PER PROTOCOL; Start 09/19/20 at 06:30 Active Scripts Active [Demeclocycline Hcl] 150 MG Tablet 150 Mg PO Q12HR 10 Days Reported Duoneb 0.5-3(2.5) Mg/3 Ml (Albuterol/Ipratropium) 3 Ml Ampul.neb 3 Ml NEB QID Levothyroxine Sodium 25 Mcg Tablet 1 Tab PO DAILYAC Wellbutrin Xl (Bupropion Hcl) 300 Mg Tab.er.24h 1 Tab PO DAILY Zoloft (Sertraline Hcl) 100 Mg Tablet 1 Tab PO BID Proair Hfa Inhaler (Albuterol Sulfate) 8.5 Gm Hfa.aer.ad 2 Puff IH PRN Q4-6HRS PRN 21 Days Allergies: Coded Allergies: No Known Drug Allergies (Unverified , 09/17/20) General: YES: Fatigue, Malaise Respiratory: YES: Shortness of breath, SOB with excertion General: mild distress HEENT: Atraumatic Lungs: Other (Decreased breath sounds bilaterally) Heart: Other (Regular rhythm with a rate of 96 bpm) Abdomen: Normal bowel sounds VITALS Vital Signs Date Time Temp Pulse Resp B/P (MAP) Pulse Ox O2 Delivery O2 Flow Rate FiO2 09/19/20 15:47 98.1 92 20 118/66 (83) 93 Nasal Cannula 3.5 Labs Laboratory Tests Test 09/17/20 18:07 09/17/20 18:18 09/17/20 20:17 09/18/20 00:54 Glucose (Fingerstick) 335 mg/dL (70-99) 346 mg/dL (70-99) 325 mg/dL (70-99) Urine Collection Type Unknown Urine Color [place] Urine Clarity Clear Urine pH 6.0 Urine Specific [place] 1.020 Urine Protein 100 mg/dl (NEG-TRACE) Urine Glucose (UA) 250 mg/dL (NEG) Urine Ketones (Stick) Trace mg/dL (NEG) Urine Blood Small (NEG) Urine Nitrite Pos (NEG) Urine Bilirubin Large (NEG) Urine Urobilinogen Dipstick >=8.0 mg/dL (0.2 mg/dL) Urine Leukocyte Esterase Neg (NEG) Urine RBC 3-5 /HPF (0-2) Urine WBC 0 /HPF (0-4) Urine Squamous Epithelial Cells Mod /LPF Urine Bacteria 0 /HPF (0-FEW) Urine Opiates Screen Neg (NEG) Urine Methadone Screen Neg (NEG) Urine Barbiturates Neg (NEG) Urine Phencyclidine Screen Neg (NEG) Urine Amphetamine/Methamphetamine Neg (NEG) Urine Benzodiazepines Screen Neg (NEG) Urine Cocaine Screen Neg (NEG) Urine Cannabinoids Screen Neg (NEG) Urine Ethyl Alcohol Neg (NEG) Test 09/18/20 07:42 09/18/20 10:08 09/18/20 11:46 09/18/20 16:29 Glucose (Fingerstick) 324 mg/dL (70-99) 341 mg/dL (70-99) 256 mg/dL (70-99) Lactic Acid Level 1.3 mmol/L (0.4-2.0) Test 09/18/20 19:09 09/19/20 05:52 09/19/20 07:53 09/19/20 11:35 Glucose (Fingerstick) 197 mg/dL (70-99) 137 mg/dL (70-99) 214 mg/dL (70-99) White Blood Count 7.1 x10^3/uL (4.0-11.0) Red Blood Count 2.99 x10^6/uL (3.50-5.40) Hemoglobin 8.4 g/dL (12.0-15.5) Hematocrit 25.2 % (36.0-47.0) Mean Corpuscular Volume 84 fL (79-100) Mean Corpuscular Hemoglobin 28 pg (25-35) Mean Corpuscular Hemoglobin Concent 33 g/dL (31-37) Red Cell Distribution Width 18.0 % (11.5-14.5) Platelet Count 38 x10^3/uL (140-400) Neutrophils (%) (Auto) 88 % (31-73) Lymphocytes (%) (Auto) 8 % (24-48) Monocytes (%) (Auto) 4 % (0-9) Eosinophils (%) (Auto) 0 % (0-3) Basophils (%) (Auto) 0 % (0-3) Neutrophils # (Auto) 6.2 x10^3uL (1.8-7.7) Lymphocytes # (Auto) 0.5 x10^3/uL (1.0-4.8) Monocytes # (Auto) 0.3 x10^3/uL (0.0-1.1) Eosinophils # (Auto) 0.0 x10^3/uL (0.0-0.7) Basophils # (Auto) 0.0 x10^3/uL (0.0-0.2) Sodium Level 137 mmol/L (136-145) Potassium Level 2.6 mmol/L (3.5-5.1) Chloride Level 91 mmol/L (98-107) Carbon Dioxide Level 44 mmol/L (21-32) Anion Gap 2 (6-14) Blood Urea Nitrogen 19 mg/dL (7-20) Creatinine 0.7 mg/dL (0.6-1.0) Estimated GFR (Cockcroft-Gault) 85.4 Glucose Level 136 mg/dL (70-99) Calcium Level 8.4 mg/dL (8.5-10.1) Test 09/19/20 16:25 Glucose (Fingerstick) 123 mg/dL (70-99) Images Chest x-ray with stable consolidation in the right upper lobe and stable diffuse infiltrates Assessment/Plan 1. Increasing shortness of breath. As noted above the patient has a history of lung cancer as well as COPD and asthma. Her chest x-ray as noted above shows stable bilateral diffuse infiltrates. The patient is feeling mildly better today. We will continue on pulmonary treatments. We will attempt a trial of low-dose Lasix to see if her shortness of breath improves. 2. History of lung cancer as above. 3. Possible diastolic heart failure. We will try trial of low-dose Lasix. Will obtain a probable outpatient echocardiogram. 4. Sinus tachycardia. Improved. We will treat underlying conditions as above. 5. Elevated glucose of greater than 400 at admission. Diabetes. Treatment as per the primary service. GRISEL WILKS MD Sep 19, 2020 17:15
[2020-09-19 19:35] VITALS: BP 100/58
[2020-09-19 20:54] LABS: CALCIUM 8.9 mg/dL (8.5-10.1); CREATININE 0.9 mg/dL (0.6-1.0); GFR 63.9; POTASSIUM 3.2 mmol/L (3.5-5.1)
--- NOTE | 2020-09-19 21:03 | PN ---
DATE: SUBJECTIVE: A 60-year-old female in with lung cancer, pneumonia, difficulty breathing, general lethargy. She is doing much better. Oxygen saturation had dropped down into the upper 80s and lower 90s and her sugars have been well over 400. The patient seems to be doing a little better this morning. She is more awake and seems to be more with it. OBJECTIVE: VITAL SIGNS: Blood pressure 118/60, respiratory rate 20, pulse 90, afebrile, oxygen saturation 94% on 4 liters. GENERAL: The patient is more alert and oriented. LUNGS: Diminished, primarily in the bases. CARDIOVASCULAR: Regular sinus rhythm. ABDOMEN: Soft, nontender. No rebounding or guarding. Positive bowel sounds. No hepatosplenomegaly. DIAGNOSTIC DATA: CT scan showed fractured ribs and consolidation as well as her history of lung cancer for which she says she has not been followed up on, so she will need to be followed up for her lung cancer down at where she has been seen before. Otherwise, she continues to make relatively good progress. Potassium is down to 2.6 (NC), blood sugars are markedly improved. Lactic acid going down. IMPRESSION: Therefore of sepsis, acute exacerbation of chronic obstructive pulmonary disease with lung disease with respiratory failure and hypoxia, type 2 diabetes poorly controlled, SIADH, hypokalemia, lung cancer right upper lobe, elevated liver enzymes, acute on top of chronic diastolic heart failure, severe protein malnutrition, pneumonia of unspecified etiology. PLAN: Continue on antibiotics, monitoring her blood sugars. May try to get an abdominal ultrasound to see if there are mets to the liver, causing this elevation in her liver enzymes. ANGEL GORDON MD DR: PRISCILLA/darrell JOB#: [id number] / [id number]
[2020-09-19] MEDS ORDERED: POTASSIUM CHLORIDE 20 MEQ TABLET.ER. PO ONE (21:30)
[2020-09-19 22:10] VITALS: BP 131/73
[2020-09-20] MEDS: IPRATRPIUM/ALBUTEROL 0.5/2.5MG 3 ML NEBU. NEB SCH ×4 (05:18→19:59)
[2020-09-20] MEDS: LEVOTHYROXINE 25 MCG TABLET. PO SCH (05:20)
[2020-09-20 06:11] VITALS: BP 148/82
[2020-09-20 06:30] LABS: CALCIUM 8.7 mg/dL (8.5-10.1); CREATININE 0.6 mg/dL (0.6-1.0); POTASSIUM 3.1 mmol/L (3.5-5.1)
[2020-09-20] MEDS ORDERED: ACETAMINOPHEN 500 MG TABLET PO PRN (07:30)
[2020-09-20 08:03] LABS: BASO % 0 % (0-3); EOS % 0 % (0-3); HEMATOCRIT 24.4 % (36.0-47.0); HEMOGLOBIN 8.4 g/dL (12.0-15.5); LYMPH # 0.5 x10^3/uL (1.0-4.8); LYMPH % 8 % (24-48); MEAN CORPUSCULAR HEMOGLOBIN 29 pg (25-35); MEAN CORPUSCULAR HGB CONC 34 g/dL (31-37); MEAN CORPUSCULAR VOLUME 84 fL (79-100); MONO # 0.2 x10^3/uL (0.0-1.1); MONO % 4 % (0-9); NEUT # 5.9 x10^3uL (1.8-7.7); NEUT % 88 % (31-73); PLATELET COUNT 36 x10^3/uL (140-400); RED BLOOD COUNT 2.92 x10^6/uL (3.50-5.40); RED CELL DISTRIBUTION WIDTH 18.4 % (11.5-14.5); WHITE BLOOD COUNT 6.7 x10^3/uL (4.0-11.0)
[2020-09-20] MEDS: LACTOBACILLUS RHAMNOSUS GG 1 CAPSULE. PO SCH ×2 (08:24→20:37)
[2020-09-20] MEDS: buPROPion XL 300 MG TAB.ER.24H. PO SCH (08:24)
[2020-09-20] MEDS: CARVEDILOL 3.125 MG TABLET PO SCH ×2 (08:25→17:00)
[2020-09-20] MEDS: DEMECLOCYCLINE HCL 150 MG TABLET. PO SCH ×2 (08:25→20:35)
[2020-09-20] MEDS: SERTRALINE 100 MG TABLET. PO SCH ×2 (08:25→20:35)
[2020-09-20] MEDS: FUROSEMIDE 20 MG/2 ML VIAL IVP SCH (08:25)
--- NOTE | 2020-09-20 08:31 | RAD ---
Abdominal ultrasound 09/20/2020. Reason for exam: Elevated liver enzymes. FINDINGS: There is diffusely heterogeneous liver echotexture with suggestion of multiple small rounde d mostly hyperechoic lesions. These are present throughout both lobes. The liver measures up to 22 cm in length. The biliary tree does not appear dilated. A gallstone is seen in the gallbladder. There is no apparent gallbladder wall thickening or surroundi ng fluid. The right kidney has normal cortical thickness and echogenicity without apparent mass or obstruction. It measures 13.3 cm in length. The left kidney was less well seen, but shows no apparent abnormality . Measures roughly 14.2 cm. The pancreas appears normal. The spleen is at the upper limits of normal in size and shows no abnormality. There are graph the abd ominal aorta was not well seen, but visualized segments show no dilatation. The IVC also appears norm al. Some pleural fluid is visible on the right. IMPRESSION: There is evidence of multiple small liver lesions. Metastatic disease is a concern. Cholelithiasis without apparent cholecystitis. Electronically signed by: Jcarlos Soto Jr., MD (09/20/2020 8:28 AM) [id number]
[2020-09-20] MEDS: INSULIN LISPRO 300 UNITS/3 ML VIAL. SQ SCH ×4 (08:33→20:38)
[2020-09-20] MEDS: INSULIN GLARGINE SYRINGE. SQ SCH ×2 (08:34→20:38)
[2020-09-20] MEDS: AMMONIUM LACTATE 12% TOPICAL LOTION 226GM BOTTLE. TP SCH ×2 (09:00→21:00)
[2020-09-20] MEDS: ACETAMINOPHEN/CODEINE 300/30MG TABLET PO PRN ×2 (09:46→20:37)
[2020-09-20] MEDS: IV NORMAL SALINE 1,000ML 1,000 ML IV SCH ×2 (11:10→17:25)
[2020-09-20 11:14] VITALS: BP 141/81
[2020-09-20] MEDS: AZITHROMYCIN 250 MG TABLET. PO SCH (12:21)
[2020-09-20 14:53] VITALS: BP 125/70
[2020-09-20] MEDS ORDERED: ELECTROLYTE (NON-ICU) PROTOCOL. MC PRN (18:30)
[2020-09-20] MEDS: CARVEDILOL 6.25 MG TABLET PO SCH (19:00)
[2020-09-20 19:47] VITALS: BP 141/66
[2020-09-20] MEDS ORDERED: POTASSIUM CHLORIDE 20 MEQ TABLET.ER. PO ONE (20:00)
--- NOTE | 2020-09-20 21:37 | PN ---
DATE: 09/20/2020 SUBJECTIVE: A 60-year-old female in with sepsis, pneumonia of unspecified etiology, lung cancer with metastasis to her liver unfortunately as well as poorly controlled diabetes. We are trying to get the living will from the . She has been ____ some V-tach. 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 OBJECTIVE: GENERAL: The patient is alert and oriented. She has mixed feelings about whether or not she wants to be a full code or no code and told her to think about it about that. LUNGS: Otherwise, lungs are diminished throughout, poor movement of air, but basically clear. CARDIOVASCULAR: Stable. ABDOMEN: Soft, diffuse tenderness in the right upper quadrant. EXTREMITIES: No clubbing, cyanosis. There is some wrinkling showing, they are getting some of the fluid ____ she had some fluid retention. LABORATORY DATA: The patient's blood sugars are being monitored. She also noted markedly elevated BNP as well as elevated liver enzymes and the like. Low potassium, low sodium. PLAN: We will continue to monitor on her blood sugars, continue on IV antibiotic therapy. IMPRESSION: Sepsis, lung cancer with metastasis to the liver, type 2 diabetes poorly controlled, hyponatremia, hypokalemia, anemia, possibly related to the cancer itself. Elevated liver enzymes related to the metastasis to the liver and morbid obesity and severe protein malnutrition. Otherwise, also will adjust her sliding scale and make further evaluation on her as indicated. ANGEL GORDON MD DR: PRISCILLA/darrell JOB#: [id number] / [id number]
[2020-09-21 00:16] VITALS: BP 120/69
[2020-09-21] MEDS: IV NORMAL SALINE 1,000ML 1,000 ML IV SCH ×2 (01:50→05:25)
[2020-09-21] MEDS: IPRATRPIUM/ALBUTEROL 0.5/2.5MG 3 ML NEBU. NEB SCH ×4 (05:15→20:00)
[2020-09-21] MEDS: LEVOTHYROXINE 25 MCG TABLET. PO SCH (05:25)
--- NOTE | 2020-09-21 05:48 | NUR ---
Nursing note: Pt A&Ox4, wearing 3L NC. Purewick external catheter in place, draining well, no c/o discomfort. PO intake as charted. Pt refused most turns through night, did allow for pillow under R hip.
[2020-09-21 06:12] LABS: CALCIUM 8.6 mg/dL (8.5-10.1); CREATININE 0.5 mg/dL (0.6-1.0); GFR 125.9
[2020-09-21 06:17] LABS: POTASSIUM 2.5 mmol/L (3.5-5.1)
[2020-09-21] MEDS ORDERED: ELECTROLYTE (NON-ICU) PROTOCOL. MC PRN (06:30)
[2020-09-21] MEDS: POTASSIUM CHLORIDE 10MEQ 100 ML IV SCH ×10 (06:40→21:38)
[2020-09-21] MEDS: CARVEDILOL 6.25 MG TABLET PO SCH ×3 (08:00→16:34)
[2020-09-21 08:03] VITALS: BP 127/71
[2020-09-21] MEDS: LACTOBACILLUS RHAMNOSUS GG 1 CAPSULE. PO SCH ×3 (08:13→21:00)
[2020-09-21] MEDS: AMMONIUM LACTATE 12% TOPICAL LOTION 226GM BOTTLE. TP SCH ×2 (08:14→21:00)
[2020-09-21] MEDS: DEMECLOCYCLINE HCL 150 MG TABLET. PO SCH ×3 (08:14→21:00)
[2020-09-21] MEDS: SERTRALINE 100 MG TABLET. PO SCH ×3 (08:14→21:00)
[2020-09-21] MEDS: buPROPion XL 300 MG TAB.ER.24H. PO SCH ×2 (08:14→09:00)
[2020-09-21] MEDS: methylPREDNISolone 4 MG TABLET. PO SCH ×2 (08:14→09:00)
[2020-09-21] MEDS: FUROSEMIDE 20 MG/2 ML VIAL IVP SCH (08:15)
[2020-09-21] MEDS: INSULIN LISPRO 300 UNITS/3 ML VIAL. SQ SCH ×4 (08:29→21:00)
[2020-09-21] MEDS: INSULIN GLARGINE SYRINGE. SQ SCH ×3 (08:30→23:17)
[2020-09-21] MEDS ORDERED: FUROSEMIDE 40 MG/4 ML VIAL IVP SCH (10:15)
[2020-09-21] MEDS ORDERED: FUROSEMIDE 20 MG/2 ML VIAL IVP ONE (10:30)
--- NOTE | 2020-09-21 11:28 | NUR ---
Patient's schedule noon insulin non-administered d/t patient not able to eat lunch.
[2020-09-21 12:23] VITALS: BP 136/79
[2020-09-21] MEDS: AZITHROMYCIN 250 MG TABLET. PO SCH (13:00)
[2020-09-21 14:44] LABS: CALCIUM 8.4 mg/dL (8.5-10.1); CREATININE 0.7 mg/dL (0.6-1.0); GFR 85.4
[2020-09-21 14:47] LABS: POTASSIUM 2.3 mmol/L (3.5-5.1)
[2020-09-21 14:48] VITALS: BP 118/56
[2020-09-21] MEDS ORDERED: METOPROLOL TARTRATE 5 MG/5 ML VIAL. IV ONE (16:00)
--- NOTE | 2020-09-21 16:02 | PN ---
DATE: 09/21/2020 SUBJECTIVE: A 60-year-old female, in with sepsis, pneumonia, history of lung cancer with probable mets to the liver, elevated liver enzymes, also been having some episodes of V-tach, and problems with maintaining her potassium despite being on potassium replacement therapy. The patient is also a diabetic, morbidly obese, extremely weak, unable to get out of bed on her own, needs a Cady to get her out of bed. The patient, otherwise, this morning is resting comfortably, although she has a lot of anxiety about closing her eyes and not being able to wake up and obviously in a difficult situation. Apparently, she has missed some of her chemotherapy and, as noted, I do not have all the notes from [facility] on her situation as to what they told her, but the situation obviously does not look very good for her to be transferred or dismissed to home. Her was kind enough to come up today. He did bring in her living will, which responds to a no code/do not resuscitate order. He was discussed about this to relate to his family that the patient, although basically fairly stable in her condition as a lung cancer patient with weakness, hypokalemia, and all the above-mentioned medical problems, probably would deteriorate very quickly if she were to be dismissed home. She would need extreme attention on multiple fronts. She is still receiving antibiotic therapy, breathing treatments for pneumonia, and of course the overall other several medical issues would be almost impossible to take care of at home, so the , Reji, has requested to at least talk to hospice and I have entered a request to [facility] to at least talk to the gentleman and see whether or not that would be a viable avenue for him and possibly even stay here in a capacity as a hospice patient. Otherwise, the patient is alert. She is extremely anxious. She has Ativan for that. OBJECTIVE: VITAL SIGNS: Blood pressure 130/70, respiratory rate 20, pulse 110, afebrile. She is on 3-4 liters at 93%. GENERAL: Otherwise, she is an anxious-appearing female. LUNGS: Diminished, coarse breath sounds. CARDIOVASCULAR: Regular, but occasional strings of irregular beats and sinus tachycardia. ABDOMEN: Soft. There is tenderness in the right upper quadrant area. The patient has protuberant. EXTREMITIES: No clubbing or cyanosis. There is still +1 to 2 pitting edema. We will give her additional Lasix for that. NEUROLOGIC: Alert and oriented, but highly anxious. She is very labile with her decisions on what to do about her overall medical condition unfortunately. The patient in turn will be attended to. IMPRESSION: Sepsis, pneumonia of unspecified etiology, acute respiratory on top of chronic respiratory failure with hypoxia, lung cancer with metastasis, type 2 diabetes, morbid obesity, history of SIADH, elevated liver enzymes, acute on top of chronic diastolic heart failure, abnormal cardiac arrhythmias, sinus tachycardia as well as ventricular tachycardia runs, Cardiology had seen her, severe protein malnutrition, and type 2 diabetes. PLAN: The patient continues to be monitored carefully and the patient is a no code and we will have her kept as comfortable as possible. We will continue to do everything we can presently within reason. ANGEL GORDON MD DR: PRISCILLA/darrell JOB#: [id number] / [id number]
[2020-09-21] MEDS: MAGNESIUM SULFATE 2GM 50 ML IV SCH ×3 (17:05→20:00)
[2020-09-21 18:51] VITALS: BP 134/77
[2020-09-21] MEDS: SPIRONOLACTONE 25 MG TABLET PO SCH (19:00)
[2020-09-21 23:32] VITALS: BP 126/76
[2020-09-22] MEDS: POTASSIUM CHLORIDE 10MEQ 100 ML IV SCH ×4 (02:18→05:43)
[2020-09-22 02:34] LABS: CALCIUM 8.7 mg/dL (8.5-10.1); CREATININE 0.7 mg/dL (0.6-1.0); GFR 85.4
[2020-09-22] MEDS: IV NORMAL SALINE 1,000ML 1,000 ML IV SCH ×2 (02:58→09:25)
--- NOTE | 2020-09-22 03:55 | NUR ---
PT IN BED FOR ASSESSMENT AND MED PASS. PT IS LETHARGIC BUT AROUSABLE WITH GENTLE SHAKING. PT WAS UNABLE TO TAKE ANY PO HS MEDS DO TO BEING LETHARGIC. PT HAS PURWIC FOR INCONTINENCE. WILL CONTINUE TO MONITOR.
--- NOTE | 2020-09-22 04:00 | NUR ---
PT WOKE UP AND IS ABLE TO HOLD A CONVERSATION. PT IS A&OX3 STILL SLEEPY AT TIMES. PT HAD NO COMPLAINTS OF PAIN AT THIS TIME. WILL CONTINUE TO MONITOR.
[2020-09-22] MEDS: IPRATRPIUM/ALBUTEROL 0.5/2.5MG 3 ML NEBU. NEB SCH ×4 (04:48→19:08)
[2020-09-22 05:08] LABS: HEMOGLOBIN A1C 7.8 % (4.8-5.6)
[2020-09-22] MEDS: LEVOTHYROXINE 25 MCG TABLET. PO SCH (05:43)
[2020-09-22 06:00] VITALS: BP 104/64
[2020-09-22] MEDS: INSULIN LISPRO 300 UNITS/3 ML VIAL. SQ SCH ×4 (07:30→19:58)
--- NOTE | 2020-09-22 07:55 | PDOC ---
CARDIO Progress Notes Date & Time Date of Service DATE: 09/22/20 TIME: 07:48 Time of Evaluation 07:48 Subjective Notes No chest pain, palpitations, mild SOA Vitals Vitals Vital Signs Date Time Temp Pulse Resp B/P (MAP) Pulse Ox O2 Delivery O2 Flow Rate FiO2 09/22/20 06:00 98.2 109 24 104/64 (77) 96 Nasal Cannula 4.0 Weight Weight [ ] Input and Output I.O. Intake and Output 09/22/20 07:00 Intake Total 1000 ml Output Total 1950 ml Balance -950 ml Intake Oral 0 ml IV Total 1000 ml Output Urine Total 1950 ml Laboratory Labs Laboratory Tests Test 09/20/20 11:58 09/20/20 17:02 09/20/20 19:41 09/21/20 05:45 Glucose (Fingerstick) 157 mg/dL (70-99) 75 mg/dL (70-99) 81 mg/dL (70-99) Hemoglobin 8.3 g/dL (12.0-15.5) Sodium Level 137 mmol/L (136-145) Potassium Level 2.5 mmol/L (3.5-5.1) Chloride Level 94 mmol/L (98-107) Carbon Dioxide Level 42 mmol/L (21-32) Anion Gap 1 (6-14) Blood Urea Nitrogen 16 mg/dL (7-20) Creatinine 0.5 mg/dL (0.6-1.0) Estimated GFR (Cockcroft-Gault) 125.9 Glucose Level 100 mg/dL (70-99) Hemoglobin A1c 7.8 % (4.8-5.6) Calcium Level 8.6 mg/dL (8.5-10.1) Test 09/21/20 08:10 09/21/20 11:26 09/21/20 14:15 09/21/20 14:30 Glucose (Fingerstick) 120 mg/dL (70-99) 140 mg/dL (70-99) Sodium Level 137 mmol/L (136-145) Potassium Level 2.3 mmol/L (3.5-5.1) Chloride Level 94 mmol/L (98-107) Carbon Dioxide Level 41 mmol/L (21-32) Anion Gap 2 (6-14) Blood Urea Nitrogen 15 mg/dL (7-20) Creatinine 0.7 mg/dL (0.6-1.0) Estimated GFR (Cockcroft-Gault) 85.4 Glucose Level 123 mg/dL (70-99) Calcium Level 8.4 mg/dL (8.5-10.1) Magnesium Level 1.4 mg/dL (1.8-2.4) Test 09/21/20 19:57 09/22/20 02:14 Glucose (Fingerstick) 174 mg/dL (70-99) Sodium Level 136 mmol/L (136-145) Potassium Level 3.0 mmol/L (3.5-5.1) Chloride Level 94 mmol/L (98-107) Carbon Dioxide Level 41 mmol/L (21-32) Anion Gap 1 (6-14) Blood Urea Nitrogen 17 mg/dL (7-20) Creatinine 0.7 mg/dL (0.6-1.0) Estimated GFR (Cockcroft-Gault) 85.4 Glucose Level 152 mg/dL (70-99) Calcium Level 8.7 mg/dL (8.5-10.1) Magnesium Level 2.2 mg/dL (1.8-2.4) Microbiology Micro Microbiology 09/17/20 Urine Culture - Final, Complete 09/17/20 Blood Culture - Preliminary, Resulted NO GROWTH AFTER 4 DAYS... Physical Exams HEENT: Neck Supple W Full Motion Chest: Symmetric Lungs: Other (diminished bases) Heart: RRR (ST) Abdomen: Soft N/T, Other (obese) Extremities: Other (1-2+ bilateral LE edema) Neurology: alert, oriented, follow commands Assessment Assessment 1. Acute on chronic respiratory failure; multifactorial with PNA, COPD, CHF, and lung CA 2. Metastatic lung CA 3. Mild acute probable diastolic CHF; s/p IV Lasix 4. PSVT; mostly ST with PAC's. Occasional bursts of SVT. 5. Hypertension 6. Diabetes, II 7. Hypokalemia; replaced 8. Thrombocytopenia; PLT 36 9. Elevated LFTs; US with mets to liver Recommendations Mild diuresis with Lasix Discontinue IVFs Monitor PLTS Ongoing lung optimization,treatment of PNA VALENTINO ANDERSON APRN Sep 22, 2020 07:55
[2020-09-22] MEDS: CARVEDILOL 6.25 MG TABLET PO SCH ×2 (08:00→17:00)
[2020-09-22] MEDS ORDERED: SPIRONOLACTONE 25 MG TABLET PO SCH (09:00)
[2020-09-22] MEDS: SERTRALINE 100 MG TABLET. PO SCH ×2 (09:00→19:58)
[2020-09-22] MEDS: DEMECLOCYCLINE HCL 150 MG TABLET. PO SCH ×2 (09:00→19:58)
[2020-09-22] MEDS: FUROSEMIDE 40 MG/4 ML VIAL IVP SCH ×2 (09:00→10:14)
[2020-09-22] MEDS: buPROPion XL 300 MG TAB.ER.24H. PO SCH (09:00)
[2020-09-22] MEDS: LACTOBACILLUS RHAMNOSUS GG 1 CAPSULE. PO SCH ×2 (09:00→19:58)
[2020-09-22] MEDS: methylPREDNISolone 4 MG TABLET. PO SCH (09:00)
[2020-09-22] MEDS: SPIRONOLACTONE 25 MG TABLET PO SCH (09:00)
[2020-09-22] MEDS: AMMONIUM LACTATE 12% TOPICAL LOTION 226GM BOTTLE. TP SCH ×2 (09:00→21:00)
[2020-09-22] MEDS: INSULIN GLARGINE SYRINGE. SQ SCH ×2 (10:20→19:58)
--- NOTE | 2020-09-22 12:26 | NUR ---
Unable to give breathing tx due at 1200p due to RT busy with intubation and vent patient.
[2020-09-22] MEDS: AZITHROMYCIN 250 MG TABLET. PO SCH (12:46)
[2020-09-22 15:23] VITALS: BP 106/73
--- NOTE | 2020-09-22 18:46 | PN ---
DATE: SUBJECTIVE: The patient is a 60-year-old female with lung cancer, episodes of ventricular tachycardia in the night. The patient is somewhat better today. We finally got her potassium up and seems to be holding fairly steady there and that has made her feel a little better. Apparently, the family has discussed hospice with the patient and we will continue possibly exploring that with her history of lung cancer with mets to the liver, which would explain her elevated liver enzymes. OBJECTIVE: GENERAL: The patient otherwise is basically without complaints except for generalized weakness, unable to support herself, she gets out of bed. VITAL SIGNS: Blood pressure 160/73, respiratory rate 22, pulse 107, afebrile. HEENT: The patient's head was atraumatic, normocephalic. Eyes: PERRLA. LUNGS: Diminished throughout, but clear. CARDIOVASCULAR: Stable. ABDOMEN: Soft, nontender, no rebounding or guarding. Positive bowel sounds, no hepatosplenomegaly noted. EXTREMITIES: No clubbing, cyanosis. Some improvement there with her legs. IMPRESSION: Sepsis, pneumonia, COVID-19, acute on top of chronic respiratory failure with hypoxia, chest pain, history of atrial fibrillation and ventricular arrhythmias, coronary artery disease, hyperglycemia, leukopenia, thrombocytopenia, severe hypokalemia and hyponatremia, SIADH. Continue to administer to the patient, make further evaluation on her as indicated and will turn her over to hospice when that time comes. ANGEL GORDON MD DR: PRISCILLA/darrell JOB#: [id number] / [id number]
[2020-09-22 18:55] VITALS: BP 124/68
--- NOTE | 2020-09-22 20:07 | NUR ---
Pt sleeping with family at bedside. Family requests we do not wake pt and let her rest. Refused evening acu check and evening medications.
[2020-09-22 23:44] VITALS: BP 122/77
[2020-09-23] MEDS: IPRATRPIUM/ALBUTEROL 0.5/2.5MG 3 ML NEBU. NEB SCH ×2 (04:59→09:45)
[2020-09-23] MEDS: IV NORMAL SALINE 1,000ML 1,000 ML IV SCH (05:00)
--- NOTE | 2020-09-23 05:01 | NUR ---
this morning pt says that she does not want am tx
[2020-09-23] MEDS: LEVOTHYROXINE 25 MCG TABLET. PO SCH ×2 (05:40→06:00)
[2020-09-23 05:50] VITALS: BP 121/68
[2020-09-23 06:13] LABS: CALCIUM 9.1 mg/dL (8.5-10.1); CREATININE 0.9 mg/dL (0.6-1.0); GFR 63.9; POTASSIUM 3.3 mmol/L (3.5-5.1)
[2020-09-23] MEDS: POTASSIUM CHLORIDE 10MEQ 100 ML IV SCH ×2 (07:17→08:04)
[2020-09-23] MEDS: INSULIN LISPRO 300 UNITS/3 ML VIAL. SQ SCH (07:30)
--- NOTE | 2020-09-23 07:59 | PDOC ---
CARDIO Progress Notes Date & Time Date of Service DATE: 09/23/20 TIME: 07:59 Time of Evaluation 07:59 Subjective Notes no chest pain, palpitations, Not more SOA Vitals Vitals Vital Signs Date Time Temp Pulse Resp B/P (MAP) Pulse Ox O2 Delivery O2 Flow Rate FiO2 09/23/20 05:50 97.8 104 24 121/68 (85) 91 Nasal Cannula 4.0 Weight Weight [ ] Input and Output I.O. Intake and Output 09/23/20 07:00 Intake Total 500 ml Output Total 300 ml Balance 200 ml Intake Oral 450 ml IV Total 50 ml Output Urine Total 300 ml # Voids 2 # Bowel Movements 1 Laboratory Labs Laboratory Tests Test 09/21/20 08:10 09/21/20 11:26 09/21/20 14:15 09/21/20 14:30 Glucose (Fingerstick) 120 mg/dL (70-99) 140 mg/dL (70-99) Sodium Level 137 mmol/L (136-145) Potassium Level 2.3 mmol/L (3.5-5.1) Chloride Level 94 mmol/L (98-107) Carbon Dioxide Level 41 mmol/L (21-32) Anion Gap 2 (6-14) Blood Urea Nitrogen 15 mg/dL (7-20) Creatinine 0.7 mg/dL (0.6-1.0) Estimated GFR (Cockcroft-Gault) 85.4 Glucose Level 123 mg/dL (70-99) Calcium Level 8.4 mg/dL (8.5-10.1) Magnesium Level 1.4 mg/dL (1.8-2.4) Test 09/21/20 19:57 09/22/20 02:14 09/22/20 07:57 09/22/20 11:44 Glucose (Fingerstick) 174 mg/dL (70-99) 142 mg/dL (70-99) 214 mg/dL (70-99) Sodium Level 136 mmol/L (136-145) Potassium Level 3.0 mmol/L (3.5-5.1) Chloride Level 94 mmol/L (98-107) Carbon Dioxide Level 41 mmol/L (21-32) Anion Gap 1 (6-14) Blood Urea Nitrogen 17 mg/dL (7-20) Creatinine 0.7 mg/dL (0.6-1.0) Estimated GFR (Cockcroft-Gault) 85.4 Glucose Level 152 mg/dL (70-99) Calcium Level 8.7 mg/dL (8.5-10.1) Magnesium Level 2.2 mg/dL (1.8-2.4) Test 09/22/20 16:28 09/23/20 05:38 Glucose (Fingerstick) 156 mg/dL (70-99) Sodium Level 137 mmol/L (136-145) Potassium Level 3.3 mmol/L (3.5-5.1) Chloride Level 96 mmol/L (98-107) Carbon Dioxide Level 39 mmol/L (21-32) Anion Gap 2 (6-14) Blood Urea Nitrogen 26 mg/dL (7-20) Creatinine 0.9 mg/dL (0.6-1.0) Estimated GFR (Cockcroft-Gault) 63.9 Glucose Level 173 mg/dL (70-99) Calcium Level 9.1 mg/dL (8.5-10.1) Microbiology Micro Microbiology 09/17/20 Urine Culture - Final, Complete 09/17/20 Blood Culture - Final, Complete NO GROWTH AFTER 5 DAYS... Physical Exams HEENT: Neck Supple W Full Motion Chest: Symmetric Lungs: Other (diminished bases) Heart: RRR (SR/ST with PAC's) Extremities: Other (1+ bilateral LE edema ) Neurology: alert, oriented Assessment Assessment 1. Acute on chronic respiratory failure; multifactorial with PNA, COPD, CHF, and lung CA 2. Metastatic lung CA 3. Mild acute probable diastolic CHF; s/p IV Lasix 4. Sinus tachycardia; reactive. Rate now controlled 5. Hypertension; controlled. 6. Diabetes, II 7. Hypokalemia 8. UTI 9. Thrombocytopenia; PLT 36 10. Elevated LFTs Recommendations Lasix therapy Family considering Hospice given metastatic CA VALENTINO ANDERSON APRN Sep 23, 2020 07:59
[2020-09-23] MEDS: FUROSEMIDE 40 MG/4 ML VIAL IVP SCH (08:05)
[2020-09-23] MEDS: LACTOBACILLUS RHAMNOSUS GG 1 CAPSULE. PO SCH (08:05)
[2020-09-23 08:06] VITALS: BP 121/68
[2020-09-23] MEDS: CARVEDILOL 6.25 MG TABLET PO SCH (08:06)
[2020-09-23] MEDS: SERTRALINE 100 MG TABLET. PO SCH (08:06)
[2020-09-23] MEDS: SPIRONOLACTONE 25 MG TABLET PO SCH (08:06)
[2020-09-23] MEDS: methylPREDNISolone 4 MG TABLET. PO SCH (08:07)
[2020-09-23] MEDS: DEMECLOCYCLINE HCL 150 MG TABLET. PO SCH (08:08)
[2020-09-23] MEDS: buPROPion XL 300 MG TAB.ER.24H. PO SCH (08:08)
[2020-09-23] MEDS: INSULIN GLARGINE SYRINGE. SQ SCH (08:18)
[2020-09-23 08:20] LABS: BASO % 0 % (0-3); EOS % 0 % (0-3); HEMATOCRIT 21.9 % (36.0-47.0); HEMOGLOBIN 7.4 g/dL (12.0-15.5); LYMPH # 0.6 x10^3/uL (1.0-4.8); LYMPH % 8 % (24-48); MEAN CORPUSCULAR HEMOGLOBIN 29 pg (25-35); MEAN CORPUSCULAR HGB CONC 34 g/dL (31-37); MEAN CORPUSCULAR VOLUME 85 fL (79-100); MONO # 0.2 x10^3/uL (0.0-1.1); MONO % 3 % (0-9); NEUT % 88 % (31-73); PLATELET COUNT 31 x10^3/uL (140-400); RED BLOOD COUNT 2.59 x10^6/uL (3.50-5.40); RED CELL DISTRIBUTION WIDTH 18.8 % (11.5-14.5); WHITE BLOOD COUNT 6.8 x10^3/uL (4.0-11.0)
[2020-09-23] MEDS ORDERED: LORA2ORA2 PO (08:43)
[2020-09-23] MEDS ORDERED: INSU100I11 SQ (08:43)
[2020-09-23] MEDS ORDERED: SPIR25TA PO (08:43)
[2020-09-23] MEDS ORDERED: METH4TAB PO (08:43)
[2020-09-23] MEDS ORDERED: ACETAMINOPHEN PO (08:43)
[2020-09-23] MEDS ORDERED: AZIT250T6 PO (08:43)
[2020-09-23] MEDS ORDERED: INSU100V8 SQ (08:43)
[2020-09-23] MEDS ORDERED: METO25TA4 PO (08:43)
[2020-09-23] MEDS ORDERED: ACET500T68 PO (08:43)
[2020-09-23] MEDS ORDERED: FURO40TA4 PO (08:43)
[2020-09-23] MEDS ORDERED: AMMO225L5 TP (08:43)
[2020-09-23] MEDS ORDERED: CODEINE PO (08:43)
--- NOTE | 2020-09-23 08:44 | DISCH ---
DISCHARGE ORDERS DISCHARGE DATE: Sep 23, 2020 FINAL DIAGNOSIS Lung CA, COPD CONDITION AT DISCHARGE: Stable Code Status: DNR/DNI HOSPICE: Yes HOSPICE EVALUATE & TREAT: Yes POST DISCHARGE ORDERS: ACTIVITY ORDERS: Activity as tolerated WEIGHT BEARING STATUS: As tolerated DIET AFTER DISCHARGE: ADA CHECKS AFTER DISCHARGE: CHECKS AFTER DISCHARGE: Check blood press - daily, Check blood sugar, ac/hs DISCHARGE MEDICATIONS: Home Meds Active Scripts [Demeclocycline Hcl] 150 MG TABLET No Conflict Check, 150 MG PO Q12HR for siadh for 10 Days, #20 CAP Prov:ANGEL GORDON MD 06/30/20 Reported Medications Ipratropium/Albuterol Sulfate (DUONEB 0.5-3(2.5) MG/3 ML) 3 Ml Ampul.neb, 3 ML NEB QID for COPD LAST DOSE GIVEN: DATE: TODAY TIME: AM NEXT DOSE DUE: DATE: TODAY TIME: EARLY AFTERNOON 10/26/19 Levothyroxine Sodium (LEVOTHYROXINE SODIUM) 25 Mcg Tablet, 1 TAB PO DAILYAC for HYPOTHYROIDISM LAST DOSE GIVEN: DATE: TODAY TIME: BEFORE BREAKFAST NEXT DOSE DUE: DATE: TOMORROW TIME: BEFORE BREAKFAST 10/26/19 Bupropion Hcl (WELLBUTRIN XL) 300 Mg Tab.er.24h, 1 TAB PO DAILY for DEPRESSION/ANXIETY 10/26/19 Sertraline Hcl (ZOLOFT) 100 Mg Tablet, 1 TAB PO BID for DEPRESSION 10/26/19 Albuterol Sulfate (PROAIR HFA INHALER) 8.5 Gm Hfa.aer.ad, 2 PUFF IH PRN Q4-6HRS PRN for WHEEZING NOT GIVEN TODAY NEXT DOSE DUE: DATE: TODAY TIME: IF AND WHEN NEEDED 10/26/19 Discontinued Reported Medications Trazodone Hcl (TRAZODONE HCL) 50 Mg Tablet, 1 TAB PO QHS for insomnia, #30 TAB 1 Refill 10/26/19 Budesonide/Formoterol Fumarate (SYMBICORT 160-4.5 MCG INHALER) 10.2 Gm Hfa.aer.ad, 2 PUFF IH BID for copd, INHALER 10/26/19 ANGEL GORDON MD Sep 23, 2020 08:44
[2020-09-23] MEDS ORDERED: METOPROLOL TART IMMED RELEASE 25 MG TABLET. PO SCH (09:00)
[2020-09-23] MEDS: AMMONIUM LACTATE 12% TOPICAL LOTION 226GM BOTTLE. TP SCH (09:00)
--- NOTE | 2020-09-23 09:21 | NUR ---
PATIENT REFUSED TO EAT BREAKFAST THIS AM, HUMALOG 10 UNITS WAS NOT GIVEN. [facility] ADMINISTERED THIS AM ORDERED.
--- NOTE | 2020-09-23 10:26 | NUR ---
PATIENT IS DISCHARGED HOME WITH HOSPICE CARE. PATIENT HOME MEDS RETURNED BACK TO [facility]. PATIENT LEFT ROOM 117 VIA [facility] ACCOMP BY STAFF.
[2020-09-23] MEDS ORDERED: FUROSEMIDE 40 MG/4 ML VIAL IVP ONE (14:00)
== END 2020-09-23 10:25 | disposition hospice, home (50) | DRG 871 ==
LOC: ER 12:29 → 1 SOUTH 13:52
PROVIDERS: ADMIT Family Medicine; ATTEND Family Medicine
DX: A41.9 Sepsis, unspecified organism (principal); J18.9 Pneumonia, unspecified organism; E43 Unspecified severe protein-calorie malnutrition; J96.21 Acute and chronic respiratory failure with hypoxia; I50.33 Acute on chronic diastolic (congestive) heart failure; E22.2 Syndrome of inappropriate secretion of antidiuretic hormone; Z68.41 Body mass index [BMI] 40.0-44.9, adult; I47.1 Supraventricular tachycardia; J44.0 Chronic obstructive pulmonary disease with (acute) lower respiratory infection; J44.1 Chronic obstructive pulmonary disease with (acute) exacerbation; N39.0 Urinary tract infection, site not specified; D64.9 Anemia, unspecified; D69.6 Thrombocytopenia, unspecified; E03.9 Hypothyroidism, unspecified; E11.65 Type 2 diabetes mellitus with hyperglycemia; E66.01 Morbid (severe) obesity due to excess calories; E86.0 Dehydration; E87.6 Hypokalemia; F41.9 Anxiety disorder, unspecified; I11.0 Hypertensive heart disease with heart failure; I25.10 Atherosclerotic heart disease of native coronary artery without angina pectoris; I48.91 Unspecified atrial fibrillation; Z85.118 Personal history of other malignant neoplasm of bronchus and lung; Z87.891 Personal history of nicotine dependence; F32.9 Major depressive disorder, single episode, unspecified
CPT/HCPCS: 36415; 71045; 71111; 76700; 80048; 80053; 80307; 81001; 82550; 82803; 82947; 83036; 83605; 83690; 83735; 83880; 84484; 85007; 85018; 85025; 87040; 87086; 93005; 94640; 94760; 96361; 96365; 96366; 96375; 96376; J0696; J1815; J1940; J1956; J2060; J2270; J3475; J3480; J3490; J7509; 97530; 99285-25; J7030